=== PATIENT | male | born 1980 | race Caucasian/White ===

== ENCOUNTER 2017-05-30 09:30 | Inpatient (IN) | payer OTHER ==
[2017-05-30 10:52] VITALS: BMI 22.8
--- NOTE | 2017-05-30 13:27 | HP ---
COWS - Scale Resting Pulse: 0= [place] 80 or Below Sweatin=Flushed/Facial Moisture Restless Observation: 1= Difficult to Sit Still Pupil Size: 0= Normal to Room Light Bone or Joint Aches: 2= Severe Diffuse Aches Runny Nose/ Eye Tearin= None GI Upset > 30mins: 2= Nausea/Diarrhea Tremor Observation: 0= None Yawning Observation: 2= >3x During Session Anxiety or Irritability: 2=Irritable/Anxious Goose Flesh Skin: 3=Piloerection COWS Score: 14 CIWA Score - CIWA Score Nausea/Vomitin Muscle Tremors: None Anxiety: 4-Mod. Anxious/Guarded Agitation: 2 Paroxysmal Sweats: 3 Orientation: 2-Disoriented Date<2 days Tacttile Disturbances: 3-Moderate Itch/Numb/Burn Auditory Disturbances: 0-None Visual Disturbances: 0-None Headache: 0-None Present CIWA-Ar Total Score: 19 Admission ROS BHS - HPI Chief Complaint: "I want to get my life together. I am tired of getting high." Pt. is here to Detox from Heroin and Xanax. Allergies/Adverse Reactions: Allergies Allergy/AdvReac Type Severity Reaction Status Date / Time fish AdvReac Hives Uncoded 05/30/17 12:22 History of Present Illness: Pt. is a 36 YO male here to Detox from Heroin and Benzodiazepines (Xanax). This is pt.'s first Detox admission at [facility]. Longest period of non-drug use: approx. 6 months (05/2016 - 11/2016). Exam Limitations: No Limitations - Ebola screening Have you traveled outside of the country in the last 21 days: No Have you had contact with anyone from an Ebola affected area: No Have you been sick,other than usual withdrawal symptoms: No Do you have a fever: No - Review of Systems Constitutional: Chills, Diaphoresis, Fever, Loss of Appetite, Malaise, Night Sweats, Changes in sleep, Unintentional Wgt. Loss (Lost approx. 30 lbs. over last 3 months.) EENT: reports: No Symptoms Reported Respiratory: reports: No Symptoms reported Cardiac: reports: No Symptoms Reported GI: reports: Diarrhea, Nausea, Poor Appetite, Vomiting : reports: No Symptoms Reported Musculoskeletal: reports: Back Pain Integumentary: reports: No Symptoms Reported Neuro: reports: No Symptoms reported Endocrine: reports: No Symptoms Reported Hematology: reports: No Symptoms Reported Psychiatric: reports: Judgement Intact, Mood/Affect Appropiate, Orientated x3, Anxious Other Systems: Reviewed and Negative Patient History - Patient Medical History Hx Anemia: No Hx Asthma: No Hx Chronic Obstructive Pulmonary Disease (COPD): No Hx Cancer: No Hx Cardiac Disorders: No Hx Congestive Heart Failure: No Hx Hypertension: No Hx Hypercholesterolemia: No Hx Pacemaker: No HX Cerebrovascular Accident: No Hx Seizures: No Hx Dementia: No Hx Diabetes: No Hx Gastrointestinal Disorders: No Hx Liver Disease: No Hx Genitourinary Disorders: No Hx Sexually Transmitted Disorders: No Hx Renal Disease (ESRD): No Hx Thyroid Disease: No Hx Human Immunodeficiency Virus (HIV): No (Last Tested: apptrox. 2 years ago: NEGATIVE.) Hx Hepatitis C: Yes (Completed Treatment: January,.) Hx Depression: No Hx Suicide Attempt: No (PATIENT DENIES CURRENTY SI / HI.) Hx Bipolar Disorder: No Hx Schizophrenia: No Other Medical History: DENIES. - Patient Surgical History Past Surgical History: No Hx Neurologic Surgery: No Hx Cataract Extraction: No Hx Cardiac Surgery: No Hx Lung Surgery: No Hx Breast Surgery: No Hx Breast Biopsy: No Hx Abdominal Surgery: No Hx Appendectomy: No Hx Cholecystectomy: No Hx Genitourinary Surgery: No Hx Section: No Hx Orthopedic Surgery: No Anesthesia Reaction: No - PPD History Previous Implant?: Yes Documented Results: Negative w/o proof Implanted On Prior [facility] Admission?: No PPD to be Administered?: Yes - Reproductive History Patient is a Female of Child Bearing Age (11 -55 yrs old): No (PATIENT IS MALE.) - Smoking Cessation Smoking history: Never smoked Have you smoked in the past 12 months: No Aproximately how many cigarettes per day: 0 Cigars Per Day: 0 Hx Chewing Tobacco Use: No Initiated information on smoking cessation: No - Substance & Tx. History Hx Alcohol Use: No Hx Substance Use: Yes Substance Use Type: Cocaine, Heroin, Marijuana, Opiates (Non-Prescription Methadone.), Tranquilizers Hx Substance Use Treatment: Yes ([facility] MMTP Program, Stopped of his own volition in 05/2016.) - Substances Abused Heroin Route: Injection Frequency: 1-3 times last 30 days Amount used: 5 bags Age of first use: 14 Date of Last Use: 05/30/17 Alprazolam (Xanax) Route: Oral Frequency: 1-3 times last 30 days Amount used: 4 mg daily Age of first use: 28 Date of Last Use: 05/29/17 Marijuana/Hashish Route: Smoking Frequency: Daily Amount used: 1 bag (10 dollars) Age of first use: 15 Date of Last Use: 05/29/17 Cocaine Route: Injection Frequency: Daily Amount used: 2 bags dailt (20 dollars) Age of first use: 18 Date of Last Use: 05/29/17 Non-Rx Methadone Route: Oral Frequency: 1-2 times per week Amount used: 20mg-100mg Age of first use: 33 Date of Last Use: 05/26/17 Family Disease History - Family Disease History Family History: Denies Admission Physical Exam [facility] - Vital Signs Vital Signs: Vital Signs - 24 hr 05/30/17 10:45 Temperature 96.8 F L Pulse Rate 70 Respiratory 20 Rate Blood Pressure 135/79 - Physical General Appearance: Yes: No Apparent Distress, Nourished, Appropriately Dressed , Sweating, Anxious HEENTM: Yes: Hearing grossly Normal, Normocephalic, Normal Voice, ELDA, Pharynx Normal Respiratory: Yes: Chest Non-Tender, Lungs Clear, No Respiratory Distress, No Accessory Muscle Use Neck: Yes: No masses,lesions,Nodules, Supple, Trachea in good position Breast: Yes: Breast Exam Deferred Cardiology: Yes: Regular Rhythm, Regular Rate, S1, S2 Abdominal: Yes: Normal Bowel Sounds, Non Tender, Flat, Soft Genitourinary: Yes: Within Normal Limits Back: Yes: Decreased Range of Motion Musculoskeletal: Yes: Gait Steady, Back pain Extremities: Yes: Normal Range of Motion, Non-Tender Neurological: Yes: Fully Oriented, Alert, Normal Mood/Affect, Normal Response Integumentary: Yes: Normal Color, Warm, Track [place] (Noted on bilateral forearms and hands. Redness and swelling noted at affected sites bilaterally.) Lymphatic: Yes: Within Normal Limits - Diagnostic (1) Opioid dependence with withdrawal Current Visit: Yes Status: Acute (2) Sedative, hypnotic or anxiolytic dependence with withdrawal, uncomplicated Current Visit: Yes Status: Acute (3) Cocaine dependence, uncomplicated Current Visit: Yes Status: Acute (4) Cannabis dependence, uncomplicated Current Visit: Yes Status: Acute (5) History of hepatitis C Current Visit: Yes Status: Resolved Cleared for Admission [facility] - Detox or Rehab [facility] Level of Care: Medically Managed Detox Regimen/Protocol: Methadone/Valium [facility] Breath Alcohol Content Breath Alcohol Content: 0 Urine Drug Screen - Results Drug Screen Negative: No Urine Drug Screen Results: THC-Marijuana, MELCHOR-Cocaine, OPI-Opiates, BZO- Benzodiazepines, MTD-Methadone
[2017-05-30] MEDS ORDERED: MAGNESIUM HYDROX 2400MG/30ML ORAL SUSPENSION 30 ML CUP PO PRN (13:58)
[2017-05-30] MEDS ORDERED: ACETAMINOPHEN 325 MG TABLET (FP) PO PRN (13:58)
[2017-05-30] MEDS ORDERED: MAG HYDROX/AL HYDROX/SIMETH 30 ML UNIT-DOSE CUP PO PRN (13:58)
[2017-05-30] MEDS ORDERED: MAGNESIUM CITRATE 300 ML BOTTLE PO PRN (13:58)
[2017-05-30] MEDS ORDERED: guaiFENesin/D-METHORPHAN HB 10 ML UNIT-DOSE CUPS PO PRN (13:58)
[2017-05-30] MEDS ORDERED: hydrOXYzine PAMOATE 50 MG CAPSULE (FP) PO PRN (13:58)
[2017-05-30] MEDS ORDERED: IBUPROFEN 400 MG TABLET (FP) PO PRN (13:58)
[2017-05-30] MEDS ORDERED: P-EPHED 60MG/TRIPROLIDI 2.5MG TABLET PO PRN (13:58)
[2017-05-30] MEDS ORDERED: LOPERAMIDE HCL 2 MG CAPSULE PO PRN (13:58)
[2017-05-30] MEDS ORDERED: MENTHOL/PHENOL 1 EACH UD MM PRN (13:58)
[2017-05-30] MEDS ORDERED: diazePAM 5 MG TABLET PO ONE (14:41)
[2017-05-30] MEDS ORDERED: METHADONE HCL 10 MG TABLET (FOR DETOX USE ONLY) PO ONE ×2 (14:43→23:00)
[2017-05-30 15:39] LABS: MCH 28.2 pg (25.7-33.7); MEAN CELL VOLUME 85.4 fl (80-96); MEAN PLT VOLUME 8.3 fl (7.5-11.1); PLATELET COUNT 191 K/MM3 (134-434); RDW 13.1 % (11.9-15.9); WHITE BLOOD COUNT 3.2 K/mm3 (4.0-10.0)
[2017-05-30 15:51] LABS: ALBUMIN 3.7 g/dl (3.4-5.0); ANION GAP 6 (8-16); CALCIUM 8.6 mg/dL (8.5-10.1); CO2 29 mmol/L (21-32); GLUCOSE,RANDOM 75 mg/dL (74-106); SGOT/AST 26 U/L (15-37)
[2017-05-30 15:54] LABS: ALK PHOS 77 U/L (45-117); BILIRUBIN,TOTAL 0.5 mg/dL (0.2-1.0); CREATININE 1.3 mg/dL (0.7-1.3); SGPT/ALT 25 U/L (12-78); TOT PROT 6.9 g/dl (6.4-8.2)
[2017-05-30] MEDS: diazePAM 5 MG TABLET PO SCH ×2 (15:57→22:46)
--- NOTE | 2017-05-30 16:40 | EKG ---
Test Reason : Blood Pressure : / mmHG Vent. Rate : 054 BPM Atrial Rate : 054 BPM P-R Int : 140 ms QRS Dur : 088 ms QT Int : 440 ms P-R-T Axes : 029 059 045 degrees QTc Int : 417 ms SINUS BRADYCARDIA OTHERWISE NORMAL ECG NO PREVIOUS ECGS AVAILABLE Confirmed by LANDON HARRISON MD ([id number]) on 05/30/2017 4:40:01 PM Referred By: Confirmed By:LANDON HARRISON MD
[2017-05-30 17:04] LABS: HIV 1 & 2 AB NEGATIVE; HIV 1 AGp24 NEGATIVE
[2017-05-30 21:08] LABS: URINE APPEARANCE CLEAR; URINE BILIRUBIN NEGATIVE (NEGATIVE); URINE BLOOD NEGATIVE (NEGATIVE); URINE COLOR YELLOW; URINE GLUCOSE (UA) NEGATIVE (NEGATIVE); URINE KETONE TRACE (NEGATIVE); URINE LEUK ESTERASE NEGATIVE (NEGATIVE); URINE NITRITE NEGATIVE (NEGATIVE); URINE UROBILINOGEN NEGATIVE mg/dL (0.2-1.0)
[2017-05-30 21:10] LABS: URINE PROTEIN 1+ (NEGATIVE)
[2017-05-30 22:12] LABS: CALCIUM OXALATE CRYSTALS RARE /hpf (NONE SEEN); URINE BACTERIA RARE /hpf (NONE SEEN); URINE HYALINE CAST 6 /lpf; URINE MUCUS MANY
[2017-05-30] MEDS: diphenhydrAMINE HCL 50 MG CAPSULE PO PRN (22:46)
[2017-05-30] MEDS: BACITRACIN 0.9 GM PACKET TP SCH (22:46)
[2017-05-30] MEDS: THIAMINE HCL 100 MG TABLET (FP) PO SCH (22:46)
[2017-05-30] MEDS: SULFAMETHOXAZOLE/TRIMETHOPRIM 800MG/160MG D.S. TABLET PO SCH (22:46)
[2017-05-31] MEDS: diazePAM 5 MG TABLET PO SCH ×2 (05:54→22:56)
[2017-05-31] MEDS ORDERED: TRIMETHOBENZAMIDE HCL 200MG/2ML INJ IM PRN (08:52)
[2017-05-31] MEDS ORDERED: METHADONE HCL 10 MG TABLET (FOR DETOX USE ONLY) PO SCH (10:00)
[2017-05-31] MEDS: SULFAMETHOXAZOLE/TRIMETHOPRIM 800MG/160MG D.S. TABLET PO SCH ×2 (10:24→22:55)
[2017-05-31] MEDS: PRENATAL VITAMINS W/ FOLIC ACID TABLET (FP) PO SCH (10:24)
[2017-05-31] MEDS: BACITRACIN 0.9 GM PACKET TP SCH ×2 (10:25→22:55)
[2017-05-31] MEDS: diazePAM 5 MG TABLET PO PRN ×2 (10:27→20:42)
--- NOTE | 2017-05-31 11:20 | PN ---
[facility] CIWA - CIWA Score Nausea/Vomitin Muscle Tremors: 2 Anxiety: 4-Mod. Anxious/Guarded Agitation: 3 Paroxysmal Sweats: 3 Orientation: 0-Oriented Tacttile Disturbances: 2-Mild Itch/Numbness/Burn Auditory Disturbances: 0-None Visual Disturbances: 0-None Headache: 0-None Present CIWA-Ar Total Score: 19 BHS COWS - Scale Resting Pulse: 0= [place] 80 or Below Sweatin=Flushed/Facial Moisture Restless Observation: 1= Difficult to Sit Still Pupil Size: 1= Pupils >than Normal Bone or Joint Aches: 2= Severe Diffuse Aches Runny Nose/ Eye Tearin= Runny Nose/Eyes GI Upset > 30mins: 3= Vomiting/Diarrhea Tremor Observation of Outstretched Hands: 2= Slight Tremor Visible Yawning Observation: 0= None Anxiety or Irritability: 2=Irritable/Anxious Goose Flesh Skin: 0=Smooth Skin COWS Score: 15 S Progress Note (SOAP) Subjective: interrupted sleep, sweats, shakes, nausea, vomiting Objective: 05/31/17 11:18 Vital Signs Temperature 96.8 F L 05/31/17 10:00 Pulse Rate 67 05/31/17 10:00 Respiratory Rate 16 05/31/17 10:00 Blood Pressure 121/91 05/31/17 10:00 O2 Sat by Pulse Oximetry (%) Laboratory Tests 05/30/17 05/30/17 05/30/17 14:15 14:15 14:15 WBC 3.2 L RBC 4.72 Hgb 13.3 Hct 40.3 MCV 85.4 MCH 28.2 MCHC 33.0 RDW 13.1 Plt Count 191 D MPV 8.3 Sickle Cell Screen Sodium 140 Potassium 4.6 Chloride 105 Carbon Dioxide 29 Anion Gap 6 L BUN 16 Creatinine 1.3 Creat Clearance w eGFR > 60 Random Glucose 75 Calcium 8.6 Total Bilirubin 0.5 D AST 26 D ALT 25 D Alkaline Phosphatase 77 Total Protein 6.9 Albumin 3.7 Urine Color Urine Appearance Urine pH Ur Specific [place] Urine Protein Urine Glucose (UA) Urine Ketones Urine Blood Urine Nitrite Urine Bilirubin Urine Urobilinogen Ur Leukocyte Esterase Urine RBC Urine WBC Ur Epithelial Cells Calcium Oxalate Crystal Urine Bacteria Hyaline Casts Urine Mucus HIV 1&2 Antibody Screen Negative HIV P24 Antigen Negative 05/30/17 05/30/17 14:15 15:17 WBC RBC Hgb Hct MCV MCH MCHC RDW Plt Count MPV Sickle Cell Screen Negative Sodium Potassium Chloride Carbon Dioxide Anion Gap BUN Creatinine Creat Clearance w eGFR Random Glucose Calcium Total Bilirubin AST ALT Alkaline Phosphatase Total Protein Albumin Urine Color Yellow Urine Appearance Clear Urine pH 5.0 Ur Specific [place] >= 1.030 H Urine Protein 1+ H Urine Glucose (UA) Negative Urine Ketones Trace H Urine Blood Negative Urine Nitrite Negative Urine Bilirubin Negative Urine Urobilinogen Negative Ur Leukocyte Esterase Negative Urine RBC None Urine WBC None Ur Epithelial Cells Rare Calcium Oxalate Crystal Rare Urine Bacteria Rare Hyaline Casts 6 Urine Mucus Many HIV 1&2 Antibody Screen HIV P24 Antigen pt aox3 vomiting Assessment: 05/31/17 11:18 withdrawal sx's Plan: cont. detox increase fluids zofran prn
[2017-05-31] MEDS: THIAMINE HCL 100 MG TABLET (FP) PO SCH (22:56)
[2017-06-01] MEDS ORDERED: METHADONE HCL 5 MG TABLET (FOR DETOX USE ONLY) PO SCH (10:00)
[2017-06-01] MEDS: CYCLOBENZAPRINE HCL 10 MG TABLET (FP) PO PRN (10:32)
[2017-06-01] MEDS: BACITRACIN 0.9 GM PACKET TP SCH (10:32)
[2017-06-01] MEDS: SULFAMETHOXAZOLE/TRIMETHOPRIM 800MG/160MG D.S. TABLET PO SCH (10:32)
[2017-06-01] MEDS: cloNIDine HCL 0.1 MG TABLET PO SCH (10:32)
[2017-06-01] MEDS: PRENATAL VITAMINS W/ FOLIC ACID TABLET (FP) PO SCH (10:32)
[2017-06-01] MEDS: diazePAM 5 MG TABLET PO SCH ×2 (10:33→21:19)
--- NOTE | 2017-06-01 14:45 | PN ---
[facility] CIWA - CIWA Score Nausea/Vomitin Muscle Tremors: 3 Anxiety: 3 Agitation: 2 Paroxysmal Sweats: 1-Minimal Palms Moist Orientation: 0-Oriented Tacttile Disturbances: 1-Very Mild Itch/Numbness Auditory Disturbances: 1-Very Mild Visual Disturbances: 1-Very Mild Sensitivity Headache: 2-Mild CIWA-Ar Total Score: 17 BHS COWS - Scale Resting Pulse: 0= [place] 80 or Below Sweatin= Chills/Flushing Restless Observation: 3= Extraneous Movement Pupil Size: 1= Pupils >than Normal Bone or Joint Aches: 2= Severe Diffuse Aches Runny Nose/ Eye Tearin= Runny Nose/Eyes GI Upset > 30mins: 2= Nausea/Diarrhea Tremor Observation of Outstretched Hands: 2= Slight Tremor Visible Yawning Observation: 2= >3x During Session Anxiety or Irritability: 2=Irritable/Anxious Goose Flesh Skin: 0=Smooth Skin COWS Score: 17 S Progress Note (SOAP) Subjective: alert,irritable,anxious,interrupted sleep,tremor,pain in the body and back, interrupted sleep Objective: 06/01/17 14:43 Vital Signs Temperature 99.0 F 06/01/17 14:23 Pulse Rate 64 06/01/17 14:23 Respiratory Rate 18 06/01/17 14:23 Blood Pressure 130/67 06/01/17 14:23 O2 Sat by Pulse Oximetry (%) ekg sinus bradycardia 54/min Laboratory Last Values WBC 3.2 K/mm3 (4.0-10.0) L 05/30/17 14:15 RBC 4.72 M/mm3 (4.00-5.60) 05/30/17 14:15 Hgb 13.3 GM/dL (11.7-16.9) 05/30/17 14:15 Hct 40.3 % (35.4-49) 05/30/17 14:15 MCV 85.4 fl (80-96) 05/30/17 14:15 MCH 28.2 pg (25.7-33.7) 05/30/17 14:15 MCHC 33.0 g/dl (32.0-35.9) 05/30/17 14:15 RDW 13.1 % (11.9-15.9) 05/30/17 14:15 Plt Count 191 K/MM3 (134-434) D 05/30/17 14:15 MPV 8.3 fl (7.5-11.1) 05/30/17 14:15 Sickle Cell Screen Negative (NEGATIVE) 05/30/17 14:15 Sodium 140 mmol/L (136-145) 05/30/17 14:15 Potassium 4.6 mmol/L (3.5-5.1) 05/30/17 14:15 Chloride 105 mmol/L (98-107) 05/30/17 14:15 Carbon Dioxide 29 mmol/L (21-32) 05/30/17 14:15 Anion Gap 6 (8-16) L 05/30/17 14:15 BUN 16 mg/dL (7-18) 05/30/17 14:15 Creatinine 1.3 mg/dL (0.7-1.3) 05/30/17 14:15 Creat Clearance w eGFR > 60 (>60) 05/30/17 14:15 Random Glucose 75 mg/dL (74-106) 05/30/17 14:15 Calcium 8.6 mg/dL (8.5-10.1) 05/30/17 14:15 Total Bilirubin 0.5 mg/dL (0.2-1.0) D 05/30/17 14:15 AST 26 U/L (15-37) D 05/30/17 14:15 ALT 25 U/L (12-78) D 05/30/17 14:15 Alkaline Phosphatase 77 U/L (45-117) 05/30/17 14:15 Total Protein 6.9 g/dl (6.4-8.2) 05/30/17 14:15 Albumin 3.7 g/dl (3.4-5.0) 05/30/17 14:15 Urine Color Yellow 05/30/17 15:17 Urine Appearance Clear 05/30/17 15:17 Urine pH 5.0 (5.0-8.0) 05/30/17 15:17 Ur Specific [place] >= 1.030 (1.005-1.025) H 05/30/17 15:17 Urine Protein 1+ (NEGATIVE) H 05/30/17 15:17 Urine Glucose (UA) Negative (NEGATIVE) 05/30/17 15:17 Urine Ketones Trace (NEGATIVE) H 05/30/17 15:17 Urine Blood Negative (NEGATIVE) 05/30/17 15:17 Urine Nitrite Negative (NEGATIVE) 05/30/17 15:17 Urine Bilirubin Negative (NEGATIVE) 05/30/17 15:17 Urine Urobilinogen Negative mg/dL (0.2-1.0) 05/30/17 15:17 Ur Leukocyte Esterase Negative (NEGATIVE) 05/30/17 15:17 Urine RBC None /hpf (0-3) 05/30/17 15:17 Urine WBC None /hpf (3-5) 05/30/17 15:17 Ur Epithelial Cells Rare /hpf (FEW) 05/30/17 15:17 Calcium Oxalate Crystal Rare /hpf (NONE SEEN) 05/30/17 15:17 Urine Bacteria Rare /hpf (NONE SEEN) 05/30/17 15:17 Hyaline Casts 6 /lpf 05/30/17 15:17 Urine Mucus Many 05/30/17 15:17 RPR Titer Nonreactive (NONREACTIVE) 05/30/17 14:15 HIV 1&2 Antibody Screen Negative 05/30/17 14:15 HIV P24 Antigen Negative 05/30/17 14:15 Assessment: 06/01/17 14:44 withdrawal symptom Plan: continue detox
[2017-06-01] MEDS: diazePAM 5 MG TABLET PO PRN (14:53)
[2017-06-02] MEDS: BACITRACIN 0.9 GM PACKET TP SCH ×3 (00:01→22:47)
[2017-06-02] MEDS: THIAMINE HCL 100 MG TABLET (FP) PO SCH ×2 (00:02→22:48)
[2017-06-02] MEDS: cloNIDine HCL 0.1 MG TABLET PO SCH ×3 (00:02→22:48)
[2017-06-02] MEDS: SULFAMETHOXAZOLE/TRIMETHOPRIM 800MG/160MG D.S. TABLET PO SCH ×3 (00:02→22:48)
[2017-06-02] MEDS: diazePAM 5 MG TABLET PO SCH ×3 (00:02→22:48)
[2017-06-02] MEDS: CYCLOBENZAPRINE HCL 10 MG TABLET (FP) PO PRN (07:14)
--- NOTE | 2017-06-02 09:14 | PN ---
S Progress Note (SOAP) Subjective: ALERT,IRRITABLE,ANXIOUS,INTERRUPTED SLEEP,PAIN IN THE BODY AND BACK Objective: 06/02/17 09:12 Vital Signs Temperature 98.0 F 06/02/17 06:52 Pulse Rate 55 L 06/02/17 06:52 Respiratory Rate 16 06/02/17 06:52 Blood Pressure 118/77 06/02/17 06:52 O2 Sat by Pulse Oximetry (%) Assessment: 06/02/17 09:13 WITHDRAWAL SYMPTOM Plan: CONTINUE DETOX
[2017-06-02] MEDS ORDERED: METHADONE HCL 10 MG TABLET (FOR DETOX USE ONLY) PO ONE (10:00)
[2017-06-02] MEDS: PRENATAL VITAMINS W/ FOLIC ACID TABLET (FP) PO SCH (10:20)
[2017-06-02] MEDS: diphenhydrAMINE HCL 50 MG CAPSULE PO PRN (22:48)
[2017-06-03] MEDS ORDERED: METHADONE HCL 5 MG TABLET (FOR DETOX USE ONLY) PO ONE (06:00)
[2017-06-03 06:19] VITALS: BP 120/58; PULSE 55; TEMP 98.1
--- NOTE | 2017-06-03 08:48 | DS ---
[facility] Detox Discharge Summary Admission Date: 05/30/17 Discharge Date: 06/03/17 - History Present History: Cannabis Dependence, Opioid Dependence, Sedative Dependence - Physical Exam Results Vital Signs: Vital Signs Temperature 98.1 F 06/03/17 06:17 Pulse Rate 55 L 06/03/17 06:17 Respiratory Rate 16 06/03/17 06:17 Blood Pressure 120/58 06/03/17 06:17 O2 Sat by Pulse Oximetry (%) - Treatment Hospital Course: Detox Protocol Followed, Detoxed Safely, Responded well, Discharged Condition Good, Rehab Referral Accepted - Medication Discharge Medications: Ambulatory Orders NK [No Known Home Medication] 05/30/17 - Diagnosis (1) Abscess of arm Current Visit: Yes Status: Acute (2) Abscess, hand Current Visit: Yes Status: Acute (3) Cannabis dependence, uncomplicated Current Visit: Yes Status: Chronic (4) Cocaine dependence, uncomplicated Current Visit: Yes Status: Chronic (5) Opioid dependence with withdrawal Current Visit: Yes Status: Chronic (6) Sedative, hypnotic or anxiolytic dependence with withdrawal, uncomplicated Current Visit: Yes Status: Chronic (7) Hep C w/o coma, chronic Current Visit: No Status: Chronic - AMA Did Patient Leave Against Medical Advice: No
--- NOTE | 2017-06-03 09:38 | CONSULT ---
[facility] Psychiatric Consult - Data Date of interview: 06/03/17 Admission source: [facility] Identifying data: This is 36 years old male with no psychiatric hospitalization history iontoxicated with: Heroin Methadonme, Cannabis, Cocaine, Xanax Substance Abuse History: - Smoking Cessation. Smoking history: Never smoked. Have you smoked in the past 12 months: No. Aproximately how many cigarettes per day: 0. Cigars Per Day: 0. Hx Chewing Tobacco Use: No. Initiated information on smoking cessation: No. - Substance & Tx. History. Hx Alcohol Use: No. Hx Substance Use: Yes. Substance Use Type: Cocaine, Heroin, Marijuana , Opiates (Non-Prescription Methadone.), Tranquilizers. Hx Substance Use Treatment: Yes ([facility] MMTP Program, Stopped of his own volition in 05/2016.). - Substances Abused. Heroin. Route: Injection. Frequency: 1-3 times last 30 days. Amount used: 5 bags. Age of first use: 14. Date of Last Use: 05/30/17. Alprazolam (Xanax). Route: Oral. Frequency: 1-3 times last 30 days. Amount used: 4 mg daily. Age of first use: 28. Date of Last Use: 05/29/17. * * Marijuana/Hashish. Route: Smoking. Frequency: Daily. Amount used: 1 bag ( 10 dollars). Age of first use: 15. Date of Last Use: 05/29/17. Cocaine. Route: Injection. Frequency: Daily. Amount used: 2 bags dailt (20 dollars). Age of first use: 18. Date of Last Use: 05/29/17. Non-Rx Methadone. Route : Oral. Frequency: 1-2 times per week. Amount used: 20mg-100mg. Age of first use: 33. Date of Last Use: 05/26/17 Medical History: Hisotry of Abscesses of arm, hand, Hep C+ Psychiatric History: Patient denies past psychiatric history Physical/Sexual Abuse/Trauma History: Denies Additional Comment: Observation. Detox Unit Care Protocol Mental Status Exam - Mental Status Exam Alert and Oriented to: Person Cognitive Function: Fair Patient Appearance: Well Groomed Mood: Anxious Affect: Mood Congruent Patient Behavior: Cooperative Speech Pattern: Excessive Voice Loudness: Mildly Loud Thought Process: Goal Oriented Thought Disorder: Being Controlled Hallucinations: Denies Suicidal Ideation: Denies Homicidal Ideation: Denies Insight/Judgement: Fair Sleep: Difficulty falling asleep Appetite: Weight loss Muscle strength/Tone: Normal Gait/Station: Normal Additional Comments: Observation. Detox Unit Care Protocol Psychiatric Findings - Problem List ([place] 1, 2,3) (1) Abscess of arm Current Visit: Yes Status: Acute Comment: Bilateral. (2) Abscess, hand Current Visit: Yes Status: Acute Comment: Bilateral. (3) Cannabis dependence, uncomplicated Current Visit: Yes Status: Chronic (4) Cocaine dependence, uncomplicated Current Visit: Yes Status: Chronic (5) Opioid dependence with withdrawal Current Visit: Yes Status: Chronic (6) Sedative, hypnotic or anxiolytic dependence with withdrawal, uncomplicated Current Visit: Yes Status: Chronic (7) Drug-induced mood disorder Current Visit: Yes Status: Acute - Initial Treatment Plan Initial Treatment Plan: Observation. Detox Unit Care Protocol
[2017-06-03] MEDS ORDERED: METHADONE HCL 10 MG TABLET (FOR DETOX USE ONLY) PO SCH (10:00)
[2017-06-03] MEDS ORDERED: diazePAM 5 MG TABLET PO SCH (10:00)
[2017-06-04] MEDS ORDERED: METHADONE HCL 5 MG TABLET (FOR DETOX USE ONLY) PO SCH (06:00)
== END 2017-06-03 08:58 | disposition home or self-care (01) | DRG 773 ==
LOC: YASAS 09:30 → Y6N 13:48
PROVIDERS: ADMIT Internal Medicine Addiction Medicine; ATTEND Internal Medicine Addiction Medicine
PROC: HZ2ZZZZ Detoxification Services for Substance Abuse Treatment (ICD-10-PCS; principal; 2017-05-30)
DX: F11.23 Opioid dependence with withdrawal (principal); F13.230 Sedative, hypnotic or anxiolytic dependence with withdrawal, uncomplicated; F14.20 Cocaine dependence, uncomplicated; F12.20 Cannabis dependence, uncomplicated; F19.24 Other psychoactive substance dependence with psychoactive substance-induced mood disorder; B18.2 Chronic viral hepatitis C; L02.414 Cutaneous abscess of left upper limb; L02.413 Cutaneous abscess of right upper limb; L02.512 Cutaneous abscess of left hand; L02.511 Cutaneous abscess of right hand
CPT/HCPCS: 36415; 80053; 81003; 81015; 85027; 85660; 86593; 87389; 93005; 93010

== ENCOUNTER 2018-02-21 09:28 | Inpatient (IN) | payer OTHER ==
[2018-02-21 11:45] VITALS: BMI 23.5
--- NOTE | 2018-02-21 13:10 | HP ---
COWS - Scale Resting Pulse: 0= [place] 80 or Below Sweatin=Flushed/Facial Moisture Restless Observation: 3= Extraneous Movement Pupil Size: 2= Moderately Dilated Bone or Joint Aches: 2= Severe Diffuse Aches Runny Nose/ Eye Tearin= Runny Nose/Eyes GI Upset > 30mins: 3= Vomiting/Diarrhea Tremor Observation: 2= Slight Tremor Visible Yawning Observation: 2= >3x During Session Anxiety or Irritability: 2=Irritable/Anxious Goose Flesh Skin: 0=Smooth Skin COWS Score: 20 Admission ROS S - HPI Chief Complaint: I NEED HELP TO STOP USING HEROIN,COCAINE,MARIJUANA PCP Allergies/Adverse Reactions: Allergies Allergy/AdvReac Type Severity Reaction Status Date / Time No Known Drug Allergies Allergy Unknown Verified 02/21/18 14:11 NKDA Allergy Uncoded 02/21/18 14:11 fish AdvReac Hives Uncoded 02/21/18 12:08 History of Present Illness: THIS 37 YEARS OLD MALE WITH HEROIN,COCAINE,MARIJUANA AND PCP DEPENDENCE,SEEKING DETOX,WITHDRAWAL SYMPTOM,LAST DETOX HYPERTENSION NO MEDICATION HEPATITIS C ANXIETY,INSOMNIA LONGEST PERIOD OF SOBRIETY 3 YEARS WEIGHT LOSS NICOTINE DEPENDENCE Exam Limitations: No Limitations - Ebola screening Have you traveled outside of the country in the last 21 days: No (N) Have you had contact with anyone from an Ebola affected area: No Have you been sick,other than usual withdrawal symptoms: No Do you have a fever: No - Review of Systems Constitutional: Chills, Diaphoresis, Loss of Appetite, Malaise, Night Sweats, Changes in sleep, Weakness, Unintentional Wgt. Loss EENT: reports: Tearing, Nose Congestion Respiratory: reports: No Symptoms reported Cardiac: reports: No Symptoms Reported GI: reports: Nausea, Vomiting, Abdominal cramping : reports: No Symptoms Reported Musculoskeletal: reports: Back Pain, Joint Pain, Muscle Pain Integumentary: reports: Dryness Neuro: reports: Headache, Tremors Endocrine: reports: No Symptoms Reported Hematology: reports: No Symptoms Reported Psychiatric: reports: No Sypmtoms Reported, Judgement Intact, Mood/Affect Appropiate, Orientated x3 (INSOMNIA,ANXIETY,DEPRESSION) Patient History - Patient Medical History Hx Anemia: No Hx Asthma: No Hx Chronic Obstructive Pulmonary Disease (COPD): No Hx Cancer: No Hx Cardiac Disorders: No Hx Congestive Heart Failure: No Hx Hypertension: No Hx Hypercholesterolemia: No Hx Pacemaker: No HX Cerebrovascular Accident: No Hx Seizures: No Hx Dementia: No Hx Diabetes: No Hx Gastrointestinal Disorders: No Hx Liver Disease: Yes (Hep C) Hx Genitourinary Disorders: No Hx Sexually Transmitted Disorders: No Hx Renal Disease (ESRD): No Hx Thyroid Disease: No Hx Human Immunodeficiency Virus (HIV): No (01/26 AT [facility] NEGATIVE) Hx Hepatitis C: Yes ([place] 1 a, treatment-naive) Hx Depression: No Hx Suicide Attempt: No (PATIENT DENIES CURRENTY SI / HI.) Hx Bipolar Disorder: No Hx Schizophrenia: No Other Medical History: NO SUICIDAL,NO SUICIDAL - Patient Surgical History Past Surgical History: No Hx Neurologic Surgery: No Hx Cataract Extraction: No Hx Cardiac Surgery: No Hx Lung Surgery: No Hx Breast Surgery: No Hx Breast Biopsy: No Hx Abdominal Surgery: No Hx Appendectomy: No Hx Cholecystectomy: No Hx Genitourinary Surgery: No Hx Section: No Hx Orthopedic Surgery: No Anesthesia Reaction: No - PPD History Previous Implant?: Yes Documented Results: Negative w/proof Implanted On Prior [facility] Admission?: Yes Date: 06/01/17 Results: 0 MM PPD to be Administered?: No - Smoking Cessation Smoking history: Current every day smoker Have you smoked in the past 12 months: No Aproximately how many cigarettes per day: 20 Cigars Per Day: 0 Hx Chewing Tobacco Use: No Initiated information on smoking cessation: Yes 'Breaking Loose' booklet given: 02/21/18 - Substance & Tx. History Hx Alcohol Use: No Hx Substance Use: Yes Substance Use Type: Cocaine, Heroin Hx Substance Use Treatment: Yes ([facility] 05/30/17 TO 06/03/17) - Substances Abused Heroin Route: Injection Frequency: Daily Amount used: 15BAGS Age of first use: 15 Date of Last Use: 02/21/18 Cocaine Route: Smoking Frequency: Daily Amount used: 2 GRAMS Age of first use: 23 Date of Last Use: 02/21/18 Marijuana/Hashish Route: Smoking Frequency: 1-2 times per week Amount used: 10$ Age of first use: 14 Date of Last Use: 02/20/18 PCP Route: Smoking Frequency: 1-2 times per week Amount used: 20$ Age of first use: 37 Date of Last Use: 02/19/18 Family Disease History - Family Disease History Family Disease History: Diabetes: Grandparent (maternal GM), Sister Admission Physical Exam [facility] - Vital Signs Vital Signs: Vital Signs - 24 hr 02/21/18 11:43 Temperature 96.4 F L Pulse Rate 69 Respiratory 20 Rate Blood Pressure 161/96 - Physical General Appearance: Yes: Moderate Distress, Irritable, Sweating, Anxious HEENTM: Yes: Normal ENT Inspection, ELDA, Pharynx Normal, Other (IV SITE LEFT NECK) Respiratory: Yes: Within Normal Limits, Lungs Clear, Normal Breath Sounds Neck: Yes: Within Normal Limits, Supple, Trachea in good position Breast: Yes: Within Normal Limits Cardiology: Yes: Within Normal Limits, Regular Rhythm, Regular Rate, S1, S2 Abdominal: Yes: Within Normal Limits, Normal Bowel Sounds, Non Tender, Flat, Soft Genitourinary: Yes: Within Normal Limits Back: Yes: Normal Inspection, Muscle Spasm Musculoskeletal: Yes: full range of Motion, Back pain, Muscle Pain Extremities: Yes: Within Normal Limits, Normal Range of Motion, Tremors Neurological: Yes: linseed oil order filler II-XII NML intact, Fully Oriented, Alert, Motor Strength 5/5 Integumentary: Yes: Dry, Track [place] (BOTH NECKS) Lymphatic: Yes: Within Normal Limits - Diagnostic (1) Opioid dependence with withdrawal Current Visit: Yes Status: Acute (2) Cannabis dependence, uncomplicated Current Visit: Yes Status: Acute (3) Cocaine dependence, uncomplicated Current Visit: Yes Status: Acute (4) Hepatitis C Current Visit: Yes Status: Acute Qualifiers: Viral hepatitis chronicity: chronic Hepatic coma status: without hepatic coma Qualified Code(s): B18.2 - Chronic viral hepatitis C (5) PCP abuse Current Visit: Yes Status: Acute (6) IV drug user Current Visit: Yes Status: Acute (7) Dehydration Current Visit: Yes Status: Acute (8) Insomnia secondary to depression with anxiety Current Visit: Yes Status: Acute (9) Nicotine dependence Current Visit: Yes Status: Acute Qualifiers: Nicotine product type: cigarettes Substance use status: uncomplicated Qualified Code(s): F17.210 - Nicotine dependence, cigarettes, uncomplicated Cleared for Admission [facility] - Detox or Rehab [facility] Level of Care: Medically Managed Detox Regimen/Protocol: Methadone S Breath Alcohol Content Breath Alcohol Content: 0 Urine Drug Screen - Results Drug Screen Negative: No Urine Drug Screen Results: THC-Marijuana, MELCHOR-Cocaine, OPI-Opiates, PCP- Phencyclidine
[2018-02-21] MEDS ORDERED: P-EPHED 60MG/TRIPROLIDI 2.5MG TABLET PO PRN (13:36)
[2018-02-21] MEDS ORDERED: LOPERAMIDE HCL 2 MG CAPSULE PO PRN (13:36)
[2018-02-21] MEDS ORDERED: hydrOXYzine PAMOATE 50 MG CAPSULE (FP) PO PRN (13:36)
[2018-02-21] MEDS ORDERED: IBUPROFEN 400 MG TABLET (FP) PO PRN (13:36)
[2018-02-21] MEDS ORDERED: MAGNESIUM CITRATE 300 ML BOTTLE PO PRN (13:36)
[2018-02-21] MEDS ORDERED: ACETAMINOPHEN 325 MG TABLET (FP) PO PRN (13:36)
[2018-02-21] MEDS ORDERED: guaiFENesin/D-METHORPHAN HB 10 ML UNIT-DOSE CUPS PO PRN (13:36)
[2018-02-21] MEDS ORDERED: MAGNESIUM HYDROX 2400MG/30ML ORAL SUSPENSION 30 ML CUP PO PRN (13:36)
[2018-02-21] MEDS ORDERED: MAG HYDROX/AL HYDROX/SIMETH 30 ML UNIT-DOSE CUP PO PRN (13:36)
[2018-02-21] MEDS ORDERED: MENTHOL/PHENOL 1 EACH UD MM PRN (13:36)
[2018-02-21] MEDS ORDERED: CYCLOBENZAPRINE HCL 10 MG TABLET (FP) PO PRN (13:41)
[2018-02-21] MEDS ORDERED: METHADONE HCL 10 MG TABLET (FOR DETOX USE ONLY) PO ONE ×2 (14:15→23:00)
[2018-02-21] MEDS: cloNIDine HCL 0.1 MG TABLET PO SCH ×2 (16:04→22:27)
[2018-02-21] MEDS: diazePAM 5 MG TABLET PO PRN ×2 (16:05→22:27)
[2018-02-21] MEDS: NICOTINE 21 MG/24 HOURS TOPICAL PATCH TD SCH (16:07)
--- NOTE | 2018-02-21 16:34 | CONSULT ---
[facility] Psychiatric Consult - Data Date of interview: 02/21/18 Admission source: [facility] Identifying data: Readmission to [facility] for this 37 y/o male seeking detox treatment on for cannabis,alcohol,heroin,heroin and phencyclidine dependence.Patient is ,a father of four,domiciled, unemployed (just released from skilled nursing) and supported by relatives. Substance Abuse History: Confirmed by patient in this interview.Details in current [facility] report : Smoking history: Current every day smoker. Have you smoked in the past 12 months: No. Aproximately how many cigarettes per day: 20. Cigars Per Day: 0. Hx Chewing Tobacco Use: No. Initiated information on smoking cessation: Yes. 'Breaking Loose' booklet given: 02/21/18. - Substance & Tx. History. Hx Alcohol Use: No. Hx Substance Use: Yes. Substance Use Type : Cocaine, Heroin. Hx Substance Use Treatment: Yes ([facility] 05/30/17 TO 06/03/17) . - Substances Abused. Heroin. Route: Injection. Frequency: Daily. Amount used: 15BAGS. Age of first use: 15. Date of Last Use: 02/21/18. Cocaine. Route: Smoking. Frequency: Daily. Amount used: 2 GRAMS. Age of first use: 23. Date of Last Use: 02/21/18. Marijuana/Hashish. Route: Smoking. Frequency: 1-2 times per week. Amount used: 10$. Age of first use: 14. Date of Last Use: 02/20/18. PCP. Route: Smoking. Frequency: 1-2 times per week. Amount used: 20$. Age of first use: 37. Date of Last Use: 09/28 Medical History: Hepatitis C. Psychiatric History: Patient admits to a history of one psychiatric hospitalization ([facility]) in 2002.Diagnosed with Bipolar Disorder ( self-report).Past trials of various psychotropic medications (paxil,trazodone, seroquel,prozac,gabapentin).Mr Anton reports that he has stopped taking medications " for more than a year." No OPD care.Patient endorses one suicide attempt via jumping in the path of oncoming traffic (2002). Physical/Sexual Abuse/Trauma History: Patient denies. Additional Comment: Urine Drug Screen Results: THC-Marijuana, MELCHOR-Cocaine, OPI- Opiates, PCP-Phencyclidine.Noted. Mental Status Exam - Mental Status Exam Alert and Oriented to: Time, Place, Person Cognitive Function: Good Patient Appearance: Well Groomed (tall stature,tattoos on upper extremities) Mood: Withdrawn, Anxious Affect: Appropriate, Normal Range Patient Behavior: Fatigued, Appropriate, Cooperative Speech Pattern: Clear Voice Loudness: Normal Thought Process: Goal Oriented Hallucinations: Denies Suicidal Ideation: Denies Homicidal Ideation: Denies Insight/Judgement: Poor Sleep: Poorly, Difficulty falling asleep (wants seroquel) Muscle strength/Tone: Normal Gait/Station: Normal Psychiatric Findings - Problem List ([place] 1, 2,3) (1) Opioid dependence with withdrawal Current Visit: Yes Status: Acute (2) Cannabis dependence, uncomplicated Current Visit: Yes Status: Acute (3) Cocaine dependence, uncomplicated Current Visit: Yes Status: Acute (4) PCP abuse Current Visit: Yes Status: Acute (5) Nicotine dependence Current Visit: Yes Status: Acute (6) Drug-induced mood disorder Current Visit: Yes Status: Acute (7) Insomnia Current Visit: Yes Status: Acute - Initial Treatment Plan Initial Treatment Plan: Psychoeducation.Sleep hygiene.Detoxification in progress.Seroquel 100 mg po hs.Side effects/benefits discussed with patient.Made aware of risk for metabolic syndrome,oversedation/falls,abnormal involuntary movements and cardiovascular adverse events.Mr Anton agrees with this careplan.Observation.
[2018-02-21 21:38] LABS: URINE APPEARANCE CLEAR; URINE BILIRUBIN NEGATIVE (<2.0 mg/dL); URINE BLOOD NEGATIVE (NEGATIVE); URINE COLOR YELLOW; URINE GLUCOSE (UA) NEGATIVE (NEGATIVE); URINE KETONE NEGATIVE (NEGATIVE); URINE LEUK ESTERASE NEGATIVE (NEGATIVE); URINE NITRITE NEGATIVE (NEGATIVE); URINE PROTEIN NEGATIVE (NEGATIVE); URINE UROBILINOGEN NEGATIVE mg/dL (0.2-1.0)
[2018-02-21] MEDS ORDERED: MELATONIN 5 MG TABLETS PO PRN (22:00)
[2018-02-21] MEDS: THIAMINE HCL 100 MG TABLET (FP) PO SCH (22:27)
[2018-02-21] MEDS: QUEtiapine FUMARATE 100 MG TABLET (FP) PO SCH (22:28)
[2018-02-22] MEDS ORDERED: METHADONE HCL 10 MG TABLET (FOR DETOX USE ONLY) PO ONE (10:00)
[2018-02-22] MEDS: PRENATAL VITAMINS W/ FOLIC ACID TABLET (FP) PO SCH (10:32)
[2018-02-22] MEDS: diazePAM 5 MG TABLET PO PRN ×3 (10:32→22:27)
[2018-02-22] MEDS: cloNIDine HCL 0.1 MG TABLET PO SCH ×2 (10:32→22:27)
[2018-02-22 10:33] LABS: HEMATOCRIT 36.4 % (35.4-49); HEMOGLOBIN 12.2 GM/dL (11.7-16.9); MCH 28.8 pg (25.7-33.7); MCHC 33.4 g/dl (32.0-35.9); MEAN CELL VOLUME 86.1 fl (80-96); MEAN PLT VOLUME 8.3 fl (7.5-11.1); PLATELET COUNT 345 K/MM3 (134-434); RBC 4.23 M/mm3 (4.00-5.60); RDW 13.8 % (11.9-15.9); WHITE BLOOD COUNT 4.5 K/mm3 (4.0-10.0)
[2018-02-22] MEDS: NICOTINE 21 MG/24 HOURS TOPICAL PATCH TD SCH (10:33)
[2018-02-22 10:44] LABS: CHLORIDE 104 mmol/L (98-107); POTASSIUM 4.5 mmol/L (3.5-5.1); SODIUM 141 mmol/L (136-145)
[2018-02-22 10:52] LABS: ALBUMIN 3.8 g/dl (3.4-5.0); ALK PHOS 69 U/L (45-117); ANION GAP 8 (8-16); BILIRUBIN,TOTAL 0.4 mg/dL (0.2-1.0); BLOOD UREA NITROGEN 14 mg/dL (7-18); CO2 29 mmol/L (21-32); CREATININE 1.1 mg/dL (0.7-1.3); GLUCOSE,RANDOM 118 mg/dL (74-106); SGOT/AST 25 U/L (15-37); SGPT/ALT 18 U/L (12-78); TOT PROT 7.2 g/dl (6.4-8.2)
[2018-02-22] MEDS: PANTOPRAZOLE 20 MG TABLET (FP) PO SCH (13:53)
--- NOTE | 2018-02-22 16:12 | PN ---
BHS COWS - Scale Resting Pulse: 0= ID 80 or Below Sweatin= Chills/Flushing Restless Observation: 1= Difficult to Sit Still Pupil Size: 0= Normal to Room Light Bone or Joint Aches: 2= Severe Diffuse Aches Runny Nose/ Eye Tearin= Runny Nose/Eyes GI Upset > 30mins: 1= Stomach Cramp Tremor Observation of Outstretched Hands: 0= None Yawning Observation: 1= 1-2x During Session Anxiety or Irritability: 2=Irritable/Anxious Goose Flesh Skin: 3=Piloerection COWS Score: 13 BHS Progress Note (SOAP) Subjective: Body Aches, Interrupted Sleep, Sweating, Stomach Cramping. Objective: PATIENT A & O X 3, OBSERVED AMBULATING ON UNIT. NO ACUTE DISTRESS. 02/22/18 16:10 Vital Signs Temperature 97.6 F 02/22/18 11:21 Pulse Rate 68 02/22/18 11:21 Respiratory Rate 18 02/22/18 11:21 Blood Pressure 122/74 02/22/18 11:21 O2 Sat by Pulse Oximetry (%) Laboratory Tests 02/21/18 02/22/18 02/22/18 18:40 06:20 06:20 WBC 4.5 RBC 4.23 Hgb 12.2 D Hct 36.4 D MCV 86.1 MCH 28.8 MCHC 33.4 RDW 13.8 Plt Count 345 MPV 8.3 Sodium 141 Potassium 4.5 Chloride 104 Carbon Dioxide 29 Anion Gap 8 BUN 14 Creatinine 1.1 Creat Clearance w eGFR > 60 Random Glucose 118 H D Calcium 9.0 Total Bilirubin 0.4 AST 25 ALT 18 D Alkaline Phosphatase 69 Total Protein 7.2 Albumin 3.8 Urine Color Yellow Urine Appearance Clear Urine pH 5.0 Ur Specific [place] 1.028 Urine Protein Negative Urine Glucose (UA) Negative Urine Ketones Negative Urine Blood Negative Urine Nitrite Negative Urine Bilirubin Negative Urine Urobilinogen Negative Ur Leukocyte Esterase Negative RPR Titer 02/22/18 06:20 WBC RBC Hgb Hct MCV MCH MCHC RDW Plt Count MPV Sodium Potassium Chloride Carbon Dioxide Anion Gap BUN Creatinine Creat Clearance w eGFR Random Glucose Calcium Total Bilirubin AST ALT Alkaline Phosphatase Total Protein Albumin Urine Color Urine Appearance Urine pH Ur Specific [place] Urine Protein Urine Glucose (UA) Urine Ketones Urine Blood Urine Nitrite Urine Bilirubin Urine Urobilinogen Ur Leukocyte Esterase RPR Titer Nonreactive LABS NOTED. 02/22/18 16:11 Assessment: 02/22/18 16:11 WITHDRAWAL SYMPTOMS. Plan: CONTINUE DETOX. INCREASE DAILY PO FLUID INTAKE.
[2018-02-22] MEDS: QUEtiapine FUMARATE 100 MG TABLET (FP) PO SCH (22:27)
[2018-02-22] MEDS: THIAMINE HCL 100 MG TABLET (FP) PO SCH (22:27)
[2018-02-23] MEDS ORDERED: METHADONE HCL 5 MG TABLET (FOR DETOX USE ONLY) PO ONE (10:00)
[2018-02-23] MEDS: PANTOPRAZOLE 20 MG TABLET (FP) PO SCH (10:26)
[2018-02-23] MEDS: PRENATAL VITAMINS W/ FOLIC ACID TABLET (FP) PO SCH (10:26)
[2018-02-23] MEDS: NICOTINE 21 MG/24 HOURS TOPICAL PATCH TD SCH (10:26)
[2018-02-23] MEDS: cloNIDine HCL 0.1 MG TABLET PO SCH ×2 (10:26→22:43)
[2018-02-23] MEDS: diazePAM 5 MG TABLET PO PRN ×3 (10:27→22:43)
--- NOTE | 2018-02-23 11:42 | PN ---
BHS COWS - Scale Resting Pulse: 0= [place] 80 or Below Sweatin= Chills/Flushing Restless Observation: 1= Difficult to Sit Still Pupil Size: 0= Normal to Room Light Bone or Joint Aches: 2= Severe Diffuse Aches Runny Nose/ Eye Tearin= Nasal Congestion GI Upset > 30mins: 1= Stomach Cramp Tremor Observation of Outstretched Hands: 2= Slight Tremor Visible Yawning Observation: 2= >3x During Session Anxiety or Irritability: 2=Irritable/Anxious Goose Flesh Skin: 0=Smooth Skin COWS Score: 12 BHS Progress Note (SOAP) Subjective: irritable agitation sweats interrupted sleep Objective: 02/23/18 11:41 Vital Signs Temperature 95.7 F L 02/23/18 11:11 Pulse Rate 71 02/23/18 11:11 Respiratory Rate 18 02/23/18 11:11 Blood Pressure 114/69 02/23/18 11:11 O2 Sat by Pulse Oximetry (%) Laboratory Tests 02/21/18 02/22/18 02/22/18 18:40 06:20 06:20 WBC 4.5 RBC 4.23 Hgb 12.2 D Hct 36.4 D MCV 86.1 MCH 28.8 MCHC 33.4 RDW 13.8 Plt Count 345 MPV 8.3 Sodium 141 Potassium 4.5 Chloride 104 Carbon Dioxide 29 Anion Gap 8 BUN 14 Creatinine 1.1 Creat Clearance w eGFR > 60 Random Glucose 118 H D Calcium 9.0 Total Bilirubin 0.4 AST 25 ALT 18 D Alkaline Phosphatase 69 Total Protein 7.2 Albumin 3.8 Urine Color Yellow Urine Appearance Clear Urine pH 5.0 Ur Specific [place] 1.028 Urine Protein Negative Urine Glucose (UA) Negative Urine Ketones Negative Urine Blood Negative Urine Nitrite Negative Urine Bilirubin Negative Urine Urobilinogen Negative Ur Leukocyte Esterase Negative RPR Titer 02/22/18 06:20 WBC RBC Hgb Hct MCV MCH MCHC RDW Plt Count MPV Sodium Potassium Chloride Carbon Dioxide Anion Gap BUN Creatinine Creat Clearance w eGFR Random Glucose Calcium Total Bilirubin AST ALT Alkaline Phosphatase Total Protein Albumin Urine Color Urine Appearance Urine pH Ur Specific [place] Urine Protein Urine Glucose (UA) Urine Ketones Urine Blood Urine Nitrite Urine Bilirubin Urine Urobilinogen Ur Leukocyte Esterase RPR Titer Nonreactive aaox3 ambulating no acute distress Assessment: 04/15/18 11:42 withdrawal sx Plan: continue detox increase fluids
[2018-02-23] MEDS: QUEtiapine FUMARATE 100 MG TABLET (FP) PO SCH (22:43)
[2018-02-23] MEDS: THIAMINE HCL 100 MG TABLET (FP) PO SCH (22:43)
[2018-02-24] MEDS ORDERED: METHADONE HCL 5 MG TABLET (FOR DETOX USE ONLY) PO ONE (10:00)
[2018-02-24] MEDS: diazePAM 5 MG TABLET PO PRN (10:53)
[2018-02-24] MEDS: cloNIDine HCL 0.1 MG TABLET PO SCH (10:53)
[2018-02-24] MEDS: PANTOPRAZOLE 20 MG TABLET (FP) PO SCH (10:53)
[2018-02-24] MEDS: PRENATAL VITAMINS W/ FOLIC ACID TABLET (FP) PO SCH (10:53)
[2018-02-24] MEDS: NICOTINE 21 MG/24 HOURS TOPICAL PATCH TD SCH (11:07)
--- NOTE | 2018-02-24 12:44 | EKG ---
Test Reason : Blood Pressure : / mmHG Vent. Rate : 073 BPM Atrial Rate : 073 BPM P-R Int : 132 ms QRS Dur : 088 ms QT Int : 396 ms P-R-T Axes : 044 049 060 degrees QTc Int : 436 ms NORMAL SINUS RHYTHM NORMAL ECG WHEN COMPARED WITH ECG OF 30-MAY-2017 14:10, NO SIGNIFICANT CHANGE WAS FOUND Confirmed by VIPUL LEONE MD ([id number]) on 02/24/2018 12:43:45 PM Referred By: Confirmed By:VIPUL LEONE MD
[2018-02-24 14:17] VITALS: BP 114/67; PULSE 80; TEMP 96
--- NOTE | 2018-02-24 14:47 | PN ---
S Progress Note Note: PT DECLINED TO CONTINUE WITH DETOX STATING "I'M FINE, I JUST WANT TO LEAVE." ALL ENCOURAGEMENT TO COMPLETE DETOX FAILED.
--- NOTE | 2018-02-24 14:52 | DS ---
[facility] Detox Discharge Summary Admission Date: 02/21/18 Discharge Date: 02/24/18 - History Present History: Cannabis Dependence, Cocaine Dependence, Opioid Dependence, Pcp Dependence Additional Comments: PT DECLINED TO CONTINUE WITH DETOX. ALERT O X 3. NO ACUTE DISTRESS. PT REPORTS HIS PRIMARY CARE IS AT [facility], [facility] AND WILL F/U AFTER DISCHARGE NEEDED.. Pertinent Past History: PLEASE SEE BELOW - Physical Exam Results Vital Signs: Vital Signs Temperature 96 F L 02/24/18 14:13 Pulse Rate 80 02/24/18 14:13 Respiratory Rate 20 02/24/18 14:13 Blood Pressure 114/67 02/24/18 14:13 O2 Sat by Pulse Oximetry (%) Pertinent Admission Physical Exam Findings: WITHDRAWAL SX Laboratory Last Values WBC 4.5 K/mm3 (4.0-10.0) 02/22/18 06:20 RBC 4.23 M/mm3 (4.00-5.60) 02/22/18 06:20 Hgb 12.2 GM/dL (11.7-16.9) D 02/22/18 06:20 Hct 36.4 % (35.4-49) D 02/22/18 06:20 MCV 86.1 fl (80-96) 02/22/18 06:20 MCH 28.8 pg (25.7-33.7) 02/22/18 06:20 MCHC 33.4 g/dl (32.0-35.9) 02/22/18 06:20 RDW 13.8 % (11.9-15.9) 02/22/18 06:20 Plt Count 345 K/MM3 (134-434) 02/22/18 06:20 MPV 8.3 fl (7.5-11.1) 02/22/18 06:20 Sodium 141 mmol/L (136-145) 02/22/18 06:20 Potassium 4.5 mmol/L (3.5-5.1) 02/22/18 06:20 Chloride 104 mmol/L (98-107) 02/22/18 06:20 Carbon Dioxide 29 mmol/L (21-32) 02/22/18 06:20 Anion Gap 8 (8-16) 02/22/18 06:20 BUN 14 mg/dL (7-18) 02/22/18 06:20 Creatinine 1.1 mg/dL (0.7-1.3) 02/22/18 06:20 Creat Clearance w eGFR > 60 (>60) 02/22/18 06:20 Random Glucose 118 mg/dL (74-106) H D 02/22/18 06:20 Calcium 9.0 mg/dL (8.5-10.1) 02/22/18 06:20 Total Bilirubin 0.4 mg/dL (0.2-1.0) 02/22/18 06:20 AST 25 U/L (15-37) 02/22/18 06:20 ALT 18 U/L (12-78) D 02/22/18 06:20 Alkaline Phosphatase 69 U/L (45-117) 02/22/18 06:20 Total Protein 7.2 g/dl (6.4-8.2) 02/22/18 06:20 Albumin 3.8 g/dl (3.4-5.0) 02/22/18 06:20 Urine Color Yellow 02/21/18 18:40 Urine Appearance Clear 02/21/18 18:40 Urine pH 5.0 (5.0-8.0) 02/21/18 18:40 Ur Specific [place] 1.028 (1.001-1.035) 02/21/18 18:40 Urine Protein Negative (NEGATIVE) 02/21/18 18:40 Urine Glucose (UA) Negative (NEGATIVE) 02/21/18 18:40 Urine Ketones Negative (NEGATIVE) 02/21/18 18:40 Urine Blood Negative (NEGATIVE) 02/21/18 18:40 Urine Nitrite Negative (NEGATIVE) 02/21/18 18:40 Urine Bilirubin Negative (<2.0 mg/dL) 02/21/18 18:40 Urine Urobilinogen Negative mg/dL (0.2-1.0) 02/21/18 18:40 Ur Leukocyte Esterase Negative (NEGATIVE) 02/21/18 18:40 RPR Titer Nonreactive (NONREACTIVE) 02/22/18 06:20 - Treatment Hospital Course: Discharged Condition Good - Medication Discharge Medications: Ambulatory Orders Quetiapine Fumarate [Seroquel] 100 mg PO HS #30 tablet 02/21/18 - Diagnosis (1) Cannabis dependence, uncomplicated Status: Acute (2) Cocaine dependence, uncomplicated Status: Acute (3) Dehydration Status: Acute (4) Hepatitis C Status: Acute Qualifiers: Viral hepatitis chronicity: chronic Hepatic coma status: without hepatic coma Qualified Code(s): B18.2 - Chronic viral hepatitis C (5) Nicotine dependence Status: Acute Qualifiers: Nicotine product type: cigarettes Substance use status: uncomplicated Qualified Code(s): F17.210 - Nicotine dependence, cigarettes, uncomplicated (6) Opioid dependence with withdrawal Status: Acute (7) Hep C w/o coma, chronic Status: Chronic (8) PCP abuse Status: Acute - AMA Did Patient Leave Against Medical Advice: Yes (AMA)
--- NOTE | 2018-02-24 14:52 | PN ---
BHS Progress Note (SOAP) Subjective: Sweating, Body Aches, Fatigue. Objective: PATIENT A & O X 3, OBSERVED AMBULATING ON UNIT. NO ACUTE DISTRESS. 02/24/18 14:50 Vital Signs Temperature 96 F L 02/24/18 14:13 Pulse Rate 80 02/24/18 14:13 Respiratory Rate 20 02/24/18 14:13 Blood Pressure 114/67 02/24/18 14:13 O2 Sat by Pulse Oximetry (%) Laboratory Tests 02/21/18 02/22/18 02/22/18 18:40 06:20 06:20 WBC 4.5 RBC 4.23 Hgb 12.2 D Hct 36.4 D MCV 86.1 MCH 28.8 MCHC 33.4 RDW 13.8 Plt Count 345 MPV 8.3 Sodium 141 Potassium 4.5 Chloride 104 Carbon Dioxide 29 Anion Gap 8 BUN 14 Creatinine 1.1 Creat Clearance w eGFR > 60 Random Glucose 118 H D Calcium 9.0 Total Bilirubin 0.4 AST 25 ALT 18 D Alkaline Phosphatase 69 Total Protein 7.2 Albumin 3.8 Urine Color Yellow Urine Appearance Clear Urine pH 5.0 Ur Specific [place] 1.028 Urine Protein Negative Urine Glucose (UA) Negative Urine Ketones Negative Urine Blood Negative Urine Nitrite Negative Urine Bilirubin Negative Urine Urobilinogen Negative Ur Leukocyte Esterase Negative RPR Titer 02/22/18 06:20 WBC RBC Hgb Hct MCV MCH MCHC RDW Plt Count MPV Sodium Potassium Chloride Carbon Dioxide Anion Gap BUN Creatinine Creat Clearance w eGFR Random Glucose Calcium Total Bilirubin AST ALT Alkaline Phosphatase Total Protein Albumin Urine Color Urine Appearance Urine pH Ur Specific [place] Urine Protein Urine Glucose (UA) Urine Ketones Urine Blood Urine Nitrite Urine Bilirubin Urine Urobilinogen Ur Leukocyte Esterase RPR Titer Nonreactive LABS NOTED. Assessment: 02/24/18 14:51 WITHDRAWAL SYMPTOMS. Plan: CONTINUE DETOX. INCREASE DAILY PO FLUID INTAKE.
--- NOTE | 2018-02-24 14:53 | DS ---
[facility] Detox Discharge Summary Admission Date: 02/21/18 Discharge Date: 02/24/18 - History Present History: Cocaine Dependence, Opioid Dependence, Pcp Dependence - Physical Exam Results Vital Signs: Vital Signs Temperature 96 F L 02/24/18 14:13 Pulse Rate 80 02/24/18 14:13 Respiratory Rate 20 02/24/18 14:13 Blood Pressure 114/67 02/24/18 14:13 O2 Sat by Pulse Oximetry (%) - Medication Discharge Medications: Ambulatory Orders Quetiapine Fumarate [Seroquel] 100 mg PO HS #30 tablet 02/21/18 - Diagnosis (1) Cannabis dependence, uncomplicated Status: Acute (2) Cocaine dependence, uncomplicated Status: Acute (3) Hepatitis C Status: Acute Qualifiers: Viral hepatitis chronicity: chronic Hepatic coma status: without hepatic coma Qualified Code(s): B18.2 - Chronic viral hepatitis C (4) IV drug user Status: Acute (5) Insomnia secondary to depression with anxiety Status: Acute (6) Nicotine dependence Status: Acute Qualifiers: Nicotine product type: cigarettes Substance use status: uncomplicated Qualified Code(s): F17.210 - Nicotine dependence, cigarettes, uncomplicated (7) Opioid dependence with withdrawal Status: Acute (8) PCP abuse Status: Acute (9) Dehydration Status: Acute
[2018-02-25] MEDS ORDERED: METHADONE HCL 10 MG TABLET (FOR DETOX USE ONLY) PO ONE (10:00)
[2018-02-26] MEDS ORDERED: METHADONE HCL 5 MG TABLET (FOR DETOX USE ONLY) PO ONE (06:00)
== END 2018-02-24 14:39 | disposition left against medical advice (07) | DRG 770 ==
LOC: YASAS 09:28 → Y3N 13:01
PROVIDERS: ADMIT Internal Medicine; ATTEND Internal Medicine
PROC: HZ2ZZZZ Detoxification Services for Substance Abuse Treatment (ICD-10-PCS; principal; 2018-02-21)
DX: F11.23 Opioid dependence with withdrawal (principal); F14.20 Cocaine dependence, uncomplicated; F12.20 Cannabis dependence, uncomplicated; F16.20 Hallucinogen dependence, uncomplicated; F17.210 Nicotine dependence, cigarettes, uncomplicated; F19.24 Other psychoactive substance dependence with psychoactive substance-induced mood disorder; E87.6 Hypokalemia; B18.2 Chronic viral hepatitis C
CPT/HCPCS: 36415; 80053; 81003; 85027; 86593; 93005; 93010; J0735

== ENCOUNTER 2018-09-09 09:25 | Inpatient (IN) | payer OTHER ==
[2018-09-09 09:44] VITALS: BMI 24.5
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
[2018-09-09] MEDS ORDERED: LOPERAMIDE HCL 2 MG CAPSULE PO PRN (10:36)
[2018-09-09] MEDS ORDERED: P-EPHED 60MG/TRIPROLIDI 2.5MG TABLET PO PRN (10:36)
[2018-09-09] MEDS ORDERED: MAGNESIUM HYDROX 2400MG/30ML ORAL SUSPENSION 30 ML CUP PO PRN (10:36)
[2018-09-09] MEDS ORDERED: MENTHOL/PHENOL 1 EACH UD MM PRN (10:36)
[2018-09-09] MEDS ORDERED: ACETAMINOPHEN 325 MG TABLET (FP) PO PRN (10:36)
[2018-09-09] MEDS ORDERED: MAGNESIUM CITRATE 300 ML BOTTLE PO PRN (10:36)
[2018-09-09] MEDS ORDERED: guaiFENesin/D-METHORPHAN HB 10 ML UNIT-DOSE CUPS PO PRN (10:36)
[2018-09-09] MEDS ORDERED: MAG HYDROX/AL HYDROX/SIMETH 30 ML UNIT-DOSE CUP PO PRN (10:36)
[2018-09-09] MEDS ORDERED: METHADONE HCL 10 MG TABLET (FOR DETOX USE ONLY) PO ONE ×2 (10:45→23:00)
[2018-09-09] MEDS ORDERED: diazePAM 5 MG TABLET PO ONE (10:45)
[2018-09-09] MEDS: NICOTINE 21 MG/24 HOURS TOPICAL PATCH TD SCH (11:32)
[2018-09-09] MEDS: diazePAM 5 MG TABLET PO SCH ×2 (14:57→22:13)
[2018-09-09 15:04] LABS: URINE APPEARANCE CLEAR; URINE BILIRUBIN NEGATIVE (<2.0 mg/dL); URINE COLOR YELLOW; URINE GLUCOSE (UA) NEGATIVE (NEGATIVE); URINE KETONE NEGATIVE (NEGATIVE); URINE LEUK ESTERASE NEGATIVE (NEGATIVE); URINE NITRITE NEGATIVE (NEGATIVE); URINE PROTEIN NEGATIVE (NEGATIVE); URINE UROBILINOGEN 4.0 E.U/dl mg/dL (0.2-1.0)
--- NOTE | 2018-09-09 16:06 | EKG ---
Test Reason : Blood Pressure : / mmHG Vent. Rate : 062 BPM Atrial Rate : 062 BPM P-R Int : 140 ms QRS Dur : 096 ms QT Int : 382 ms P-R-T Axes : 042 047 048 degrees QTc Int : 387 ms NORMAL SINUS RHYTHM NORMAL ECG WHEN COMPARED WITH ECG OF 21-FEB-2018 15:37, NO SIGNIFICANT CHANGE WAS FOUND Confirmed by MD RAYRAY, OLIVIA ([id number]) on 09/09/2018 4:06:11 PM Referred By: Confirmed By:OLIVIA SEO MD
[2018-09-09] MEDS ORDERED: MELATONIN 5 MG TABLETS PO PRN (22:00)
[2018-09-09] MEDS: THIAMINE HCL 100 MG TABLET (FP) PO SCH (22:13)
[2018-09-10] MEDS: diazePAM 5 MG TABLET PO SCH ×3 (07:00→22:28)
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
[2018-09-10] MEDS ORDERED: PRENATAL VITAMINS W/ FOLIC ACID TABLET (FP) PO SCH (10:00)
[2018-09-10] MEDS ORDERED: METHADONE HCL 10 MG TABLET (FOR DETOX USE ONLY) PO SCH (10:00)
[2018-09-10 10:01] LABS: HEMATOCRIT 42.1 % (35.4-49); HEMOGLOBIN 13.5 GM/dL (11.7-16.9); MCH 27.7 pg (25.7-33.7); MEAN CELL VOLUME 86.5 fl (80-96); PLATELET COUNT 221 K/MM3 (134-434); RBC 4.87 M/mm3 (4.00-5.60); RDW 13.4 % (11.9-15.9); WHITE BLOOD COUNT 2.8 K/mm3 (4.0-10.0)
[2018-09-10] MEDS: NICOTINE 21 MG/24 HOURS TOPICAL PATCH TD SCH (10:21)
[2018-09-10] MEDS: diazePAM 5 MG TABLET PO PRN (10:21)
[2018-09-10] MEDS: IBUPROFEN 400 MG TABLET (FP) PO PRN (10:22)
[2018-09-10 10:31] LABS: ALBUMIN 3.2 g/dl (3.4-5.0); ALK PHOS 65 U/L (45-117); ANION GAP 8 MMOL/L (8-16); BILIRUBIN,TOTAL 0.4 mg/dL (0.2-1); BLOOD UREA NITROGEN 14 mg/dL (7-18); CALCIUM 8.1 mg/dL (8.5-10.1); CHLORIDE 106 mmol/L (98-107); CO2 25 mmol/L (21-32); CREATININE 0.9 mg/dL (0.55-1.3); GLUCOSE,RANDOM 89 mg/dL (74-106); POTASSIUM 4.5 mmol/L (3.5-5.1); SGOT/AST 27 U/L (15-37); SGPT/ALT 35 U/L (13-61); SODIUM 139 mmol/L (136-145)
--- NOTE | 2018-09-10 11:12 | PN ---
[facility] CIWA - CIWA Score Nausea/Vomitin-No Nausea/No Vomiting Muscle Tremors: 3 Anxiety: 3 Agitation: 2 Paroxysmal Sweats: 1-Minimal Palms Moist Orientation: 0-Oriented Tacttile Disturbances: 1-Very Mild Itch/Numbness Auditory Disturbances: 0-None Visual Disturbances: 0-None Headache: 1-Very Mild CIWA-Ar Total Score: 11 S COWS - Scale Resting Pulse: 0= [place] 80 or Below Sweatin= Chills/Flushing Restless Observation: 1= Difficult to Sit Still Pupil Size: 0= Normal to Room Light Bone or Joint Aches: 2= Severe Diffuse Aches Runny Nose/ Eye Tearin= Nasal Congestion GI Upset > 30mins: 2= Nausea/Diarrhea Tremor Observation of Outstretched Hands: 1= Tremor [place], Not Seen Yawning Observation: 1= 1-2x During Session Anxiety or Irritability: 1=Feels Anxious/Irritable Goose Flesh Skin: 0=Smooth Skin COWS Score: 10 [facility] Progress Note (SOAP) Subjective: back pain sweat tremor body ache trouble sleep at night Objective: 09/10/18 11:15 Vital Signs Temperature 98.4 F 09/10/18 09:28 Pulse Rate 88 09/10/18 09:28 Respiratory Rate 16 09/10/18 09:28 Blood Pressure 115/77 09/10/18 09:28 O2 Sat by Pulse Oximetry (%) Laboratory Last Values WBC 2.8 K/mm3 (4.0-10.0) L 09/10/18 07:00 RBC 4.87 M/mm3 (4.00-5.60) 09/10/18 07:00 Hgb 13.5 GM/dL (11.7-16.9) 09/10/18 07:00 Hct 42.1 % (35.4-49) 09/10/18 07:00 MCV 86.5 fl (80-96) 09/10/18 07:00 MCH 27.7 pg (25.7-33.7) 09/10/18 07:00 MCHC 32.0 g/dl (32.0-35.9) 09/10/18 07:00 RDW 13.4 % (11.9-15.9) 09/10/18 07:00 Plt Count 221 K/MM3 (134-434) 09/10/18 07:00 MPV 8.0 fl (7.5-11.1) 09/10/18 07:00 Sodium 139 mmol/L (136-145) 09/10/18 07:00 Potassium 4.5 mmol/L (3.5-5.1) 09/10/18 07:00 Chloride 106 mmol/L (98-107) 09/10/18 07:00 Carbon Dioxide 25 mmol/L (21-32) 09/10/18 07:00 Anion Gap 8 MMOL/L (8-16) 09/10/18 07:00 BUN 14 mg/dL (7-18) 09/10/18 07:00 Creatinine 0.9 mg/dL (0.55-1.3) 09/10/18 07:00 Creat Clearance w eGFR > 60 (>60) 09/10/18 07:00 Random Glucose 89 mg/dL (74-106) 09/10/18 07:00 Calcium 8.1 mg/dL (8.5-10.1) L 09/10/18 07:00 Total Bilirubin 0.4 mg/dL (0.2-1) 09/10/18 07:00 AST 27 U/L (15-37) 09/10/18 07:00 ALT 35 U/L (13-61) 09/10/18 07:00 Alkaline Phosphatase 65 U/L (45-117) 09/10/18 07:00 Total Protein 6.0 g/dl (6.4-8.2) L 09/10/18 07:00 Albumin 3.2 g/dl (3.4-5.0) L 09/10/18 07:00 Urine Color Yellow 09/09/18 12:00 Urine Appearance Clear 09/09/18 12:00 Urine pH 7.0 (5.0-8.0) D 09/09/18 12:00 Ur Specific [place] 1.024 (1.010-1.035) 09/09/18 12:00 Urine Protein Negative (NEGATIVE) 09/09/18 12:00 Urine Glucose (UA) Negative (NEGATIVE) 09/09/18 12:00 Urine Ketones Negative (NEGATIVE) 09/09/18 12:00 Urine Blood Negative (NEGATIVE) 09/09/18 12:00 Urine Nitrite Negative (NEGATIVE) 09/09/18 12:00 Urine Bilirubin Negative (<2.0 mg/dL) 09/09/18 12:00 Urine Urobilinogen 4.0 e.u/dl mg/dL (0.2-1.0) 09/09/18 12:00 Ur Leukocyte Esterase Negative (NEGATIVE) 09/09/18 12:00 lab noted 09/10/18 11:17 calcium rich food hiv positive Assessment: 09/10/18 11:18 withdrawal sx hiv Plan: continue detox strong recommend infectious disease follow up possible resume ART medication
[2018-09-10] MEDS ORDERED: FLU VACCINE QUAD 60 MCG/0.5 ML (MDV 18-19) IM ONE (12:00)
[2018-09-10] MEDS: THIAMINE HCL 100 MG TABLET (FP) PO SCH (22:27)
[2018-09-11] MEDS: diazePAM 5 MG TABLET PO PRN (05:52)
[2018-09-11] MEDS: IBUPROFEN 400 MG TABLET (FP) PO PRN (05:53)
[2018-09-11 07:01] VITALS: BP 104/57; PULSE 57; TEMP 97.7
--- NOTE | 2018-09-11 08:52 | DS ---
[facility] Detox Discharge Summary Admission Date: 09/09/18 Discharge Date: 09/11/18 - History Present History: Alcohol Dependence, Sedative Dependence Additional Comments: 38 years old male admitted on 09/09/18 for benzo and opiate withdrawal sx insists to leave the detox unit that he wants to go home and will go to [facility] care alert oriented x 3 no acute distress denies suicidal denies homocidal ideation no self destructive behavior - Physical Exam Results Vital Signs: Vital Signs Temperature 97.7 F 09/11/18 07:01 Pulse Rate 57 L 09/11/18 07:01 Respiratory Rate 18 09/11/18 07:01 Blood Pressure 104/57 L 09/11/18 07:01 O2 Sat by Pulse Oximetry (%) Pertinent Admission Physical Exam Findings: opiate and benzo withdrawal sx Vital Signs Temperature 97.7 F 09/11/18 07:01 Pulse Rate 57 L 09/11/18 07:01 Respiratory Rate 18 09/11/18 07:01 Blood Pressure 104/57 L 09/11/18 07:01 O2 Sat by Pulse Oximetry (%) Laboratory Last Values WBC 2.8 K/mm3 (4.0-10.0) L 09/10/18 07:00 RBC 4.87 M/mm3 (4.00-5.60) 09/10/18 07:00 Hgb 13.5 GM/dL (11.7-16.9) 09/10/18 07:00 Hct 42.1 % (35.4-49) 09/10/18 07:00 MCV 86.5 fl (80-96) 09/10/18 07:00 MCH 27.7 pg (25.7-33.7) 09/10/18 07:00 MCHC 32.0 g/dl (32.0-35.9) 09/10/18 07:00 RDW 13.4 % (11.9-15.9) 09/10/18 07:00 Plt Count 221 K/MM3 (134-434) 09/10/18 07:00 MPV 8.0 fl (7.5-11.1) 09/10/18 07:00 Sodium 139 mmol/L (136-145) 09/10/18 07:00 Potassium 4.5 mmol/L (3.5-5.1) 09/10/18 07:00 Chloride 106 mmol/L (98-107) 09/10/18 07:00 Carbon Dioxide 25 mmol/L (21-32) 09/10/18 07:00 Anion Gap 8 MMOL/L (8-16) 09/10/18 07:00 BUN 14 mg/dL (7-18) 09/10/18 07:00 Creatinine 0.9 mg/dL (0.55-1.3) 09/10/18 07:00 Creat Clearance w eGFR > 60 (>60) 09/10/18 07:00 Random Glucose 89 mg/dL (74-106) 09/10/18 07:00 Calcium 8.1 mg/dL (8.5-10.1) L 09/10/18 07:00 Total Bilirubin 0.4 mg/dL (0.2-1) 09/10/18 07:00 AST 27 U/L (15-37) 09/10/18 07:00 ALT 35 U/L (13-61) 09/10/18 07:00 Alkaline Phosphatase 65 U/L (45-117) 09/10/18 07:00 Total Protein 6.0 g/dl (6.4-8.2) L 09/10/18 07:00 Albumin 3.2 g/dl (3.4-5.0) L 09/10/18 07:00 Urine Color Yellow 09/09/18 12:00 Urine Appearance Clear 09/09/18 12:00 Urine pH 7.0 (5.0-8.0) D 09/09/18 12:00 Ur Specific [place] 1.024 (1.010-1.035) 09/09/18 12:00 Urine Protein Negative (NEGATIVE) 09/09/18 12:00 Urine Glucose (UA) Negative (NEGATIVE) 09/09/18 12:00 Urine Ketones Negative (NEGATIVE) 09/09/18 12:00 Urine Blood Negative (NEGATIVE) 09/09/18 12:00 Urine Nitrite Negative (NEGATIVE) 09/09/18 12:00 Urine Bilirubin Negative (<2.0 mg/dL) 09/09/18 12:00 Urine Urobilinogen 4.0 e.u/dl mg/dL (0.2-1.0) 09/09/18 12:00 Ur Leukocyte Esterase Negative (NEGATIVE) 09/09/18 12:00 RPR Titer Nonreactive (NONREACTIVE) 09/10/18 07:00 HIV 1&2 Antibody Screen Negative 09/09/18 07:00 HIV P24 Antigen Negative 09/09/18 07:00 lab noted - Treatment Hospital Course: Detox Protocol Followed, Responded well Patient has Accepted a Rehab Referral [facility] - Medication Discharge Medications: Ambulatory Orders NK [No Known Home Medication] 09/09/18 - Diagnosis (1) Hep C w/o coma, chronic Current Visit: No Status: Chronic (2) Opioid dependence with withdrawal Current Visit: Yes Status: Acute (3) Sedative, hypnotic or anxiolytic dependence with withdrawal, uncomplicated Current Visit: Yes Status: Acute (4) Drug-induced mood disorder Current Visit: Yes Status: Suspected (5) Hepatitis C Current Visit: No Status: Chronic Qualifiers: Viral hepatitis chronicity: chronic Hepatic coma status: without hepatic coma Qualified Code(s): B18.2 - Chronic viral hepatitis C (6) Nicotine dependence Current Visit: Yes Status: Acute Qualifiers: Nicotine product type: cigarettes Substance use status: in withdrawal Qualified Code(s): F17.213 - Nicotine dependence, cigarettes, with withdrawal (7) Weight loss Current Visit: Yes Status: Acute (8) Cannabis dependence, uncomplicated Current Visit: No Status: Acute (9) Cocaine dependence, uncomplicated Current Visit: No Status: Acute (10) Depression Current Visit: No Status: Suspected Qualifiers: Depression Type: dysthymia Qualified Code(s): F34.1 - Dysthymic disorder (11) Tobacco abuse Current Visit: Yes Status: Acute (12) IV drug user Current Visit: Yes Status: Chronic (13) Insomnia secondary to depression with anxiety Current Visit: No Status: Chronic (14) Insomnia Current Visit: No Status: Chronic Qualifiers: Insomnia type: unspecified Qualified Code(s): G47.00 - Insomnia, unspecified (15) Encounter for hepatitis C virus screening test for high risk patient Current Visit: No Status: Chronic (16) Pityriasis versicolor Current Visit: No Status: Chronic (17) Bipolar disorder Current Visit: Yes Status: Suspected Qualifiers: Active/Remission status: in partial remission Most recent bipolar episode type: mixed Qualified Code(s): F31.77 - Bipolar disorder, in partial remission , most recent episode mixed - AMA Did Patient Leave Against Medical Advice: Yes
[2018-09-11] MEDS ORDERED: diazePAM 5 MG TABLET PO SCH (10:00)
[2018-09-11] MEDS ORDERED: METHADONE HCL 5 MG TABLET (FOR DETOX USE ONLY) PO SCH (10:00)
[2018-09-13] MEDS ORDERED: diazePAM 5 MG TABLET PO SCH (10:00)
[2018-09-13] MEDS ORDERED: METHADONE HCL 10 MG TABLET (FOR DETOX USE ONLY) PO SCH (10:00)
[2018-09-14] MEDS ORDERED: METHADONE HCL 5 MG TABLET (FOR DETOX USE ONLY) PO SCH (06:00)
== END 2018-09-11 08:43 | disposition left against medical advice (07) | DRG 770 ==
LOC: YASAS 09:25 → Y6N 10:19
PROC: HZ2ZZZZ Detoxification Services for Substance Abuse Treatment (ICD-10-PCS; principal; 2018-09-09)
DX: F11.23 Opioid dependence with withdrawal (principal); F13.230 Sedative, hypnotic or anxiolytic dependence with withdrawal, uncomplicated; F14.20 Cocaine dependence, uncomplicated; F12.20 Cannabis dependence, uncomplicated; F17.213 Nicotine dependence, cigarettes, with withdrawal; F19.24 Other psychoactive substance dependence with psychoactive substance-induced mood disorder; F34.1 Dysthymic disorder; F51.05 Insomnia due to other mental disorder; F31.77 Bipolar disorder, in partial remission, most recent episode mixed; B18.2 Chronic viral hepatitis C; B36.0 Pityriasis versicolor; Z21 Asymptomatic human immunodeficiency virus [HIV] infection status; Z86.69 Personal history of other diseases of the nervous system and sense organs; Z91.013 Allergy to seafood; Z91.5 Personal history of self-harm
CPT/HCPCS: 36415; 80053; 81003; 85027; 86593; 87389; 90688; 93005; 93010; G0008

== ENCOUNTER 2018-12-31 10:01 | Inpatient (IN) | payer OTHER ==
[2018-12-31 10:07] VITALS: BMI 23.2
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
[2018-12-31] MEDS ORDERED: MAGNESIUM CITRATE 300 ML BOTTLE PO PRN (12:22)
[2018-12-31] MEDS ORDERED: guaiFENesin/D-METHORPHAN HB 10 ML UNIT-DOSE CUPS PO PRN (12:22)
[2018-12-31] MEDS ORDERED: LOPERAMIDE HCL 2 MG CAPSULE PO PRN (12:22)
[2018-12-31] MEDS ORDERED: MENTHOL/PHENOL 1 EACH UD MM PRN (12:22)
[2018-12-31] MEDS ORDERED: MAG HYDROX/AL HYDROX/SIMETH 30 ML UNIT-DOSE CUP PO PRN (12:22)
[2018-12-31] MEDS ORDERED: MAGNESIUM HYDROX 2400MG/30ML ORAL SUSPENSION 30 ML CUP PO PRN (12:22)
[2018-12-31] MEDS ORDERED: P-EPHED 60MG/TRIPROLIDI 2.5MG TABLET PO PRN (12:22)
[2018-12-31] MEDS ORDERED: diazePAM 5 MG TABLET PO ONE (13:15)
[2018-12-31] MEDS ORDERED: METHADONE HCL 10 MG TABLET (FOR DETOX USE ONLY) PO ONE ×2 (13:30→23:00)
[2018-12-31] MEDS: NICOTINE 21 MG/24 HOURS TOPICAL PATCH TD SCH (13:49)
[2018-12-31] MEDS: CYCLOBENZAPRINE HCL 10 MG TABLET (FP) PO PRN (13:49)
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
[2018-12-31] MEDS ORDERED: MELATONIN 5 MG TABLETS PO PRN (22:00)
[2018-12-31] MEDS: THIAMINE HCL 100 MG TABLET (FP) PO SCH (22:11)
[2018-12-31] MEDS: MIRTAZAPINE 15 MG TABLET (FP) PO SCH (22:12)
[2018-12-31] MEDS: cloNIDine HCL 0.1 MG TABLET PO SCH (22:12)
[2018-12-31] MEDS: diazePAM 5 MG TABLET PO SCH (22:12)
[2019-01-01] MEDS: diazePAM 5 MG TABLET PO SCH ×3 (06:07→22:25)
[2019-01-01] MEDS ORDERED: METHADONE HCL 10 MG TABLET (FOR DETOX USE ONLY) PO SCH (10:00)
--- NOTE | 2019-01-01 10:21 | PN ---
[facility] CIWA - CIWA Score Nausea/Vomitin-Mild Nausea/No Vomiting Muscle Tremors: 3 Anxiety: 2 Agitation: 3 Paroxysmal Sweats: 1-Minimal Palms Moist Orientation: 0-Oriented Tacttile Disturbances: 0-None Auditory Disturbances: 0-None Visual Disturbances: 0-None Headache: 2-Mild CIWA-Ar Total Score: 12 [facility] COWS - Scale Resting Pulse: 0= [place] 80 or Below Sweatin= Chills/Flushing Restless Observation: 0= Sits Still Pupil Size: 0= Normal to Room Light Bone or Joint Aches: 2= Severe Diffuse Aches Runny Nose/ Eye Tearin= Nasal Congestion GI Upset > 30mins: 2= Nausea/Diarrhea Tremor Observation of Outstretched Hands: 2= Slight Tremor Visible Yawning Observation: 2= >3x During Session Anxiety or Irritability: 2=Irritable/Anxious Goose Flesh Skin: 0=Smooth Skin COWS Score: 12 [facility] Progress Note (SOAP) Subjective: body aches tremor muscle cramping sweating Objective: 01/01/19 10:21 Vital Signs Temperature 96.7 F L 01/01/19 09:24 Pulse Rate 73 01/01/19 09:24 Respiratory Rate 18 01/01/19 09:24 Blood Pressure 130/78 01/01/19 09:24 O2 Sat by Pulse Oximetry (%) lab pending Assessment: 01/01/19 10:22 withdrawal sx Plan: continue detox
[2019-01-01] MEDS: NICOTINE 21 MG/24 HOURS TOPICAL PATCH TD SCH (10:23)
[2019-01-01] MEDS: PRENATAL VITAMINS W/ FOLIC ACID TABLET (FP) PO SCH (10:23)
[2019-01-01] MEDS: cloNIDine HCL 0.1 MG TABLET PO SCH ×2 (10:23→22:25)
[2019-01-01] MEDS: diazePAM 5 MG TABLET PO PRN (10:24)
[2019-01-01 10:41] LABS: HEMATOCRIT 39.2 % (35.4-49); MCH 28.8 pg (25.7-33.7); MCHC 33.2 g/dl (32.0-35.9); MEAN CELL VOLUME 86.8 fl (80-96); MEAN PLT VOLUME 7.8 fl (7.5-11.1); PLATELET COUNT 206 K/MM3 (134-434); RBC 4.51 M/mm3 (4.00-5.60); RDW 14.7 % (11.9-15.9); WHITE BLOOD COUNT 3.1 K/mm3 (4.0-10.0)
[2019-01-01 11:47] LABS: ALBUMIN 3.1 g/dl (3.4-5.0); ALK PHOS 66 U/L (45-117); ANION GAP 5 MMOL/L (8-16); BILIRUBIN,TOTAL 0.2 mg/dL (0.2-1); BLOOD UREA NITROGEN 19 mg/dL (7-18); CHLORIDE 108 mmol/L (98-107); CO2 28 mmol/L (21-32); CREATININE 0.9 mg/dL (0.55-1.3); GLUCOSE,RANDOM 63 mg/dL (74-106); POTASSIUM 3.9 mmol/L (3.5-5.1); SGOT/AST 25 U/L (15-37); SGPT/ALT 30 U/L (13-61); SODIUM 141 mmol/L (136-145); TOT PROT 5.9 g/dl (6.4-8.2)
[2019-01-01] MEDS: MIRTAZAPINE 15 MG TABLET (FP) PO SCH (22:25)
[2019-01-01] MEDS: THIAMINE HCL 100 MG TABLET (FP) PO SCH (22:25)
[2019-01-02] MEDS: diazePAM 5 MG TABLET PO PRN (07:17)
[2019-01-02] MEDS: cloNIDine HCL 0.1 MG TABLET PO SCH ×2 (10:10→22:19)
[2019-01-02] MEDS: PRENATAL VITAMINS W/ FOLIC ACID TABLET (FP) PO SCH (10:10)
[2019-01-02] MEDS: METHADONE HCL 5 MG TABLET (FOR DETOX USE ONLY) PO SCH (10:10)
[2019-01-02] MEDS: NICOTINE 21 MG/24 HOURS TOPICAL PATCH TD SCH (10:10)
[2019-01-02] MEDS: diazePAM 5 MG TABLET PO SCH ×2 (10:10→22:20)
[2019-01-02] MEDS: IBUPROFEN 400 MG TABLET (FP) PO PRN (12:37)
[2019-01-02] MEDS: CYCLOBENZAPRINE HCL 10 MG TABLET (FP) PO PRN ×2 (12:37→22:20)
--- NOTE | 2019-01-02 17:10 | PN ---
[facility] CIWA - CIWA Score Nausea/Vomitin-No Nausea/No Vomiting Muscle Tremors: 3 Anxiety: 3 Agitation: 1-Slight > Activity Paroxysmal Sweats: 3 Orientation: 0-Oriented Tacttile Disturbances: 0-None Auditory Disturbances: 0-None Visual Disturbances: 1-Very Mild Sensitivity Headache: 0-None Present CIWA-Ar Total Score: 11 [facility] COWS - Scale Resting Pulse: 0= [place] 80 or Below Sweatin= Chills/Flushing Restless Observation: 1= Difficult to Sit Still Pupil Size: 0= Normal to Room Light Bone or Joint Aches: 2= Severe Diffuse Aches Runny Nose/ Eye Tearin= None GI Upset > 30mins: 0= None Tremor Observation of Outstretched Hands: 2= Slight Tremor Visible Yawning Observation: 1= 1-2x During Session Anxiety or Irritability: 2=Irritable/Anxious Goose Flesh Skin: 0=Smooth Skin COWS Score: 9 S Progress Note (SOAP) Subjective: Body Aches, Tremors, Sweating. Objective: PATIENT A & O X 3, OBSERVED AMBULATING ON UNIT. IN NO ACUTE DISTRESS. 01/02/19 17:08 Vital Signs Temperature 97.0 F L 01/02/19 14:00 Pulse Rate 71 01/02/19 14:00 Respiratory Rate 18 01/02/19 14:00 Blood Pressure 126/76 01/02/19 14:00 O2 Sat by Pulse Oximetry (%) Laboratory Tests 01/01/19 01/01/19 01/01/19 06:00 08:38 08:38 WBC 3.1 L RBC 4.51 Hgb 13.0 Hct 39.2 MCV 86.8 MCH 28.8 MCHC 33.2 RDW 14.7 Plt Count 206 MPV 7.8 Sodium 141 Potassium 3.9 Chloride 108 H Carbon Dioxide 28 Anion Gap 5 L BUN 19 H Creatinine 0.9 Creat Clearance w eGFR > 60 Random Glucose 63 L Calcium 8.0 L Total Bilirubin 0.2 AST 25 ALT 30 Alkaline Phosphatase 66 Total Protein 5.9 L Albumin 3.1 L RPR Titer Nonreactive LABS NOTED. PATIENT HAS HAD LOW WBC COUNTS ON PREVIOUS ADMISSIONS. 01/02/19 17:09 Assessment: 01/02/19 17:09 WITHDRAWAL SYMPTOMS. LEUKOPENIA. Plan: CONTINUE DETOX.
[2019-01-02] MEDS: THIAMINE HCL 100 MG TABLET (FP) PO SCH (22:19)
[2019-01-02] MEDS: MIRTAZAPINE 15 MG TABLET (FP) PO SCH (22:20)
[2019-01-03] MEDS: diazePAM 5 MG TABLET PO PRN (06:12)
[2019-01-03] MEDS: NICOTINE 21 MG/24 HOURS TOPICAL PATCH TD SCH (10:13)
[2019-01-03] MEDS: METHADONE HCL 5 MG TABLET (FOR DETOX USE ONLY) PO SCH (10:13)
[2019-01-03] MEDS: diazePAM 5 MG TABLET PO SCH ×2 (10:14→22:20)
[2019-01-03] MEDS: cloNIDine HCL 0.1 MG TABLET PO SCH ×2 (10:14→22:20)
[2019-01-03] MEDS: PRENATAL VITAMINS W/ FOLIC ACID TABLET (FP) PO SCH (10:14)
[2019-01-03] MEDS: IBUPROFEN 400 MG TABLET (FP) PO PRN ×2 (10:15→17:46)
--- NOTE | 2019-01-03 13:01 | PN ---
[facility] Progress Note (SOAP) Subjective: sweats shakes Objective: 01/03/19 13:00 A & O x 3 in no acute distress chatting in hallway with other pt Vital Signs Temperature 96.5 F L 01/03/19 09:13 Pulse Rate 76 01/03/19 09:13 Respiratory Rate 18 01/03/19 09:13 Blood Pressure 125/73 01/03/19 09:13 O2 Sat by Pulse Oximetry (%) Assessment: 01/03/19 13:08 withdrawal sx Plan: Continue detox
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
--- NOTE | 2019-01-03 17:19 | PN ---
[facility] Progress Note Note: pt returned from ED in stable condition, Augmentin 875mg continued
[2019-01-03] MEDS: AMOX TR/POT CLAV 875MG/125MG TABLETS (FP) PO SCH (17:45)
[2019-01-03] MEDS: CYCLOBENZAPRINE HCL 10 MG TABLET (FP) PO PRN (22:20)
[2019-01-03] MEDS: THIAMINE HCL 100 MG TABLET (FP) PO SCH (22:20)
[2019-01-03] MEDS: MIRTAZAPINE 15 MG TABLET (FP) PO SCH (22:20)
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
[2019-01-04] MEDS: ACETAMINOPHEN 325 MG TABLET (FP) PO PRN ×3 (02:12→13:29)
[2019-01-04] MEDS: AMOX TR/POT CLAV 875MG/125MG TABLETS (FP) PO SCH ×2 (07:08→17:26)
--- NOTE | 2019-01-04 09:57 | PN ---
[facility] CIWA - CIWA Score Nausea/Vomitin-No Nausea/No Vomiting Muscle Tremors: 1-None Visible, but [place] Anxiety: 1-Mildly Anxious Agitation: 1-Slight > Activity Paroxysmal Sweats: 1-Minimal Palms Moist Orientation: 0-Oriented Tacttile Disturbances: 0-None Auditory Disturbances: 0-None Visual Disturbances: 0-None Headache: 1-Very Mild CIWA-Ar Total Score: 5 S COWS - Scale Resting Pulse: 0= [place] 80 or Below Sweatin= Chills/Flushing Restless Observation: 0= Sits Still Pupil Size: 0= Normal to Room Light Bone or Joint Aches: 1= Mild Discomfort Runny Nose/ Eye Tearin= Nasal Congestion GI Upset > 30mins: 0= None Tremor Observation of Outstretched Hands: 0= None Yawning Observation: 0= None Anxiety or Irritability: 1=Feels Anxious/Irritable Goose Flesh Skin: 0=Smooth Skin COWS Score: 4 S Progress Note (SOAP) Subjective: feeling better mild tremor less sweating right 4th finger sterile strips intact no discharge mild swell Objective: 01/04/19 09:55 Vital Signs Temperature 96 F L 01/04/19 09:15 Pulse Rate 66 01/04/19 09:15 Respiratory Rate 16 01/04/19 09:15 Blood Pressure 125/79 01/04/19 09:15 O2 Sat by Pulse Oximetry (%) Laboratory Last Values WBC 3.1 K/mm3 (4.0-10.0) L 01/01/19 06:00 RBC 4.51 M/mm3 (4.00-5.60) 01/01/19 06:00 Hgb 13.0 GM/dL (11.7-16.9) 01/01/19 06:00 Hct 39.2 % (35.4-49) 01/01/19 06:00 MCV 86.8 fl (80-96) 01/01/19 06:00 MCH 28.8 pg (25.7-33.7) 01/01/19 06:00 MCHC 33.2 g/dl (32.0-35.9) 01/01/19 06:00 RDW 14.7 % (11.9-15.9) 01/01/19 06:00 Plt Count 206 K/MM3 (134-434) 01/01/19 06:00 MPV 7.8 fl (7.5-11.1) 01/01/19 06:00 Sodium 141 mmol/L (136-145) 01/01/19 08:38 Potassium 3.9 mmol/L (3.5-5.1) 01/01/19 08:38 Chloride 108 mmol/L (98-107) H 01/01/19 08:38 Carbon Dioxide 28 mmol/L (21-32) 01/01/19 08:38 Anion Gap 5 MMOL/L (8-16) L 01/01/19 08:38 BUN 19 mg/dL (7-18) H 01/01/19 08:38 Creatinine 0.9 mg/dL (0.55-1.3) 01/01/19 08:38 Creat Clearance w eGFR > 60 (>60) 01/01/19 08:38 Random Glucose 63 mg/dL (74-106) L 01/01/19 08:38 Calcium 8.0 mg/dL (8.5-10.1) L 01/01/19 08:38 Total Bilirubin 0.2 mg/dL (0.2-1) 01/01/19 08:38 AST 25 U/L (15-37) 01/01/19 08:38 ALT 30 U/L (13-61) 01/01/19 08:38 Alkaline Phosphatase 66 U/L (45-117) 01/01/19 08:38 Total Protein 5.9 g/dl (6.4-8.2) L 01/01/19 08:38 Albumin 3.1 g/dl (3.4-5.0) L 01/01/19 08:38 RPR Titer Nonreactive (NONREACTIVE) 01/01/19 08:38 lab noted Assessment: 01/04/19 09:55 mild alcohol benzo opiate withdrawal sx Plan: continue detox augmenting e prescribed to pharmacy keep wound clean and dry free from irritation
[2019-01-04] MEDS ORDERED: BACITRACIN 0.9 GM PACKET TP SCH (10:00)
[2019-01-04] MEDS ORDERED: diazePAM 5 MG TABLET PO SCH (10:00)
[2019-01-04] MEDS ORDERED: METHADONE HCL 10 MG TABLET (FOR DETOX USE ONLY) PO SCH (10:00)
[2019-01-04] MEDS: PRENATAL VITAMINS W/ FOLIC ACID TABLET (FP) PO SCH (10:02)
[2019-01-04] MEDS: cloNIDine HCL 0.1 MG TABLET PO SCH ×2 (10:02→22:29)
[2019-01-04] MEDS: NICOTINE 21 MG/24 HOURS TOPICAL PATCH TD SCH (10:03)
[2019-01-04] MEDS: IBUPROFEN 400 MG TABLET (FP) PO PRN (17:24)
[2019-01-04] MEDS: MIRTAZAPINE 15 MG TABLET (FP) PO SCH (22:29)
[2019-01-04] MEDS: CYCLOBENZAPRINE HCL 10 MG TABLET (FP) PO PRN (22:29)
[2019-01-04] MEDS: THIAMINE HCL 100 MG TABLET (FP) PO SCH (22:29)
[2019-01-05] MEDS: ACETAMINOPHEN 325 MG TABLET (FP) PO PRN (04:48)
[2019-01-05] MEDS ORDERED: METHADONE HCL 5 MG TABLET (FOR DETOX USE ONLY) PO SCH (06:00)
[2019-01-05 06:18] VITALS: BP 115/73; PULSE 65; TEMP 97.6
[2019-01-05] MEDS: AMOX TR/POT CLAV 875MG/125MG TABLETS (FP) PO SCH (07:10)
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
== END 2019-01-05 08:55 | disposition home or self-care (01) | DRG 773 ==
LOC: YASAS 10:01 → Y3N 12:17
PROVIDERS: ADMIT Surgery; ATTEND Surgery
PROC: HZ2ZZZZ Detoxification Services for Substance Abuse Treatment (ICD-10-PCS; principal; 2018-12-31)
DX: F11.23 Opioid dependence with withdrawal (principal); F10.230 Alcohol dependence with withdrawal, uncomplicated; F14.20 Cocaine dependence, uncomplicated; F12.20 Cannabis dependence, uncomplicated; F17.213 Nicotine dependence, cigarettes, with withdrawal; F31.77 Bipolar disorder, in partial remission, most recent episode mixed; F19.24 Other psychoactive substance dependence with psychoactive substance-induced mood disorder; G47.00 Insomnia, unspecified; D72.819 Decreased white blood cell count, unspecified; S60.474A Other superficial bite of right ring finger, initial encounter; Y04.1XXA Assault by human bite, initial encounter; Y93.89 Activity, other specified; Y92.238 Other place in hospital as the place of occurrence of the external cause; Y99.8 Other external cause status; R63.4 Abnormal weight loss; Z68.23 Body mass index [BMI] 23.0-23.9, adult; Z91.5 Personal history of self-harm; Z91.19 Patient's noncompliance with other medical treatment and regimen
CPT/HCPCS: 36415; 80053; 85027; 86593; J0735

== ENCOUNTER 2019-01-03 13:41 | Emergency (ER) | payer OTHER ==
[2019-01-03 13:49] VITALS: BP 116/74; PULSE 76; TEMP 98.3; BMI 23.7
[2019-01-03] MEDS ORDERED: DIPHTH,PERTUSS(ACELL),TET 0.5 ML DISP.SYRIN IM ONE ×2 (14:26→14:31)
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
== END 2019-01-03 15:14 | disposition short-term general hospital (02) ==
LOC: JERFT 13:41
PROC: 3E0234Z Introduction of Serum, Toxoid and Vaccine into Muscle, Percutaneous Approach (ICD-10-PCS; principal; 2019-01-03)
DX: S61.254A Open bite of right ring finger without damage to nail, initial encounter (principal); S61.214A Laceration without foreign body of right ring finger without damage to nail, initial encounter; Y04.1XXA Assault by human bite, initial encounter; Y93.89 Activity, other specified; Y92.238 Other place in hospital as the place of occurrence of the external cause; Y99.8 Other external cause status; F11.20 Opioid dependence, uncomplicated; F13.20 Sedative, hypnotic or anxiolytic dependence, uncomplicated; F14.20 Cocaine dependence, uncomplicated; F12.20 Cannabis dependence, uncomplicated; F17.210 Nicotine dependence, cigarettes, uncomplicated; B18.2 Chronic viral hepatitis C
CPT/HCPCS: 73140-TC-RT-FY; 90471; 90715; 99281-25

== ENCOUNTER 2019-02-24 08:10 | Inpatient (IN) | payer OTHER ==
[2019-02-24 08:48] VITALS: BMI 22.1
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
[2019-02-24] MEDS ORDERED: MAGNESIUM CITRATE 300 ML BOTTLE PO PRN (09:29)
[2019-02-24] MEDS ORDERED: MELATONIN 5 MG TABLETS PO PRN (09:29)
[2019-02-24] MEDS ORDERED: METHOCARBAMOL 500 MG TABLET PO PRN (09:29)
[2019-02-24] MEDS ORDERED: MAGNESIUM HYDROX 2400MG/30ML ORAL SUSPENSION 30 ML CUP PO PRN (09:29)
[2019-02-24] MEDS ORDERED: hydrOXYzine PAMOATE 25 MG CAPSULE (FP) PO PRN (09:29)
[2019-02-24] MEDS ORDERED: NICOTINE POLACRILEX 2 MG GUM BUC PRN (09:29)
[2019-02-24] MEDS ORDERED: MENTHOL/PHENOL 1 EACH UD MM PRN (09:29)
[2019-02-24] MEDS ORDERED: ACETAMINOPHEN 325 MG TABLET (FP) PO PRN ×2 (09:29)
[2019-02-24] MEDS ORDERED: BISMUTH SUBSALICYLATE 262 MG/15 ML BTL PO PRN (09:29)
[2019-02-24] MEDS ORDERED: IBUPROFEN 400 MG TABLET (FP) PO PRN (09:29)
[2019-02-24] MEDS ORDERED: cloNIDine HCL 0.1 MG TABLET PO PRN (09:29)
[2019-02-24] MEDS ORDERED: diazePAM 5 MG TABLET PO PRN (09:32)
[2019-02-24] MEDS ORDERED: METHADONE HCL 10 MG TABLET (FOR DETOX USE ONLY) PO ONE ×2 (09:32→23:00)
[2019-02-24] MEDS: PRENATAL VITAMINS W/ FOLIC ACID TABLET (FP) PO SCH (10:33)
[2019-02-24] MEDS: NICOTINE 21 MG/24 HOURS TOPICAL PATCH TD SCH (10:33)
[2019-02-24] MEDS: CEPHALEXIN MONOHYDRATE 500 MG CAPSULE (UD) PO SCH ×2 (14:57→22:36)
[2019-02-24] MEDS: MAG HYDROX/AL HYDROX/SIMETH 30 ML UNIT-DOSE CUP PO PRN (14:57)
[2019-02-24] MEDS: diazePAM 5 MG TABLET PO SCH ×2 (14:57→22:37)
[2019-02-24] MEDS ORDERED: THIAMINE HCL 100 MG TABLET (FP) PO SCH (22:00)
[2019-02-25] MEDS: CEPHALEXIN MONOHYDRATE 500 MG CAPSULE (UD) PO SCH ×2 (06:07→14:10)
[2019-02-25] MEDS: diazePAM 5 MG TABLET PO SCH (06:07)
--- NOTE | 2019-02-25 09:33 | PN ---
[facility] Progress Note Note: Patient does not want to be seen
[2019-02-25] MEDS ORDERED: METHADONE HCL 10 MG TABLET (FOR DETOX USE ONLY) PO ONE (10:00)
[2019-02-25] MEDS: PRENATAL VITAMINS W/ FOLIC ACID TABLET (FP) PO SCH (10:11)
[2019-02-25] MEDS: NICOTINE 21 MG/24 HOURS TOPICAL PATCH TD SCH (10:12)
--- NOTE | 2019-02-25 10:48 | PN ---
[facility] CIWA - CIWA Score Nausea/Vomitin-No Nausea/No Vomiting Muscle Tremors: 3 Anxiety: 3 Agitation: 3 Paroxysmal Sweats: 3 Orientation: 0-Oriented Tacttile Disturbances: 0-None Auditory Disturbances: 0-None Visual Disturbances: 0-None Headache: 0-None Present CIWA-Ar Total Score: 12 [facility] COWS - Scale Resting Pulse: 1= [place] 81-100 Sweatin=Flushed/Facial Moisture Restless Observation: 1= Difficult to Sit Still Pupil Size: 0= Normal to Room Light Bone or Joint Aches: 2= Severe Diffuse Aches Runny Nose/ Eye Tearin= None GI Upset > 30mins: 2= Nausea/Diarrhea Tremor Observation of Outstretched Hands: 2= Slight Tremor Visible Yawning Observation: 2= >3x During Session Anxiety or Irritability: 2=Irritable/Anxious Goose Flesh Skin: 0=Smooth Skin COWS Score: 14 S Progress Note (SOAP) Subjective: sweats shakes interrupted sleep body aches edgy Objective: 02/25/19 10:48 Vital Signs Temperature 98.3 F 02/25/19 09:27 Pulse Rate 88 02/25/19 09:27 Respiratory Rate 18 02/25/19 09:27 Blood Pressure 108/74 02/25/19 09:27 O2 Sat by Pulse Oximetry (%) labs pending aaox3 ambulating no acute distress Assessment: 02/25/19 10:48 withdrawal sx Plan: continue detox increase fluids
[2019-02-25] MEDS: MAG HYDROX/AL HYDROX/SIMETH 30 ML UNIT-DOSE CUP PO PRN (11:58)
[2019-02-25 13:03] LABS: ALBUMIN 3.5 g/dl (3.4-5.0); ALK PHOS 72 U/L (45-117); ANION GAP 6 MMOL/L (8-16); BILIRUBIN,TOTAL 0.3 mg/dL (0.2-1); BLOOD UREA NITROGEN 15 mg/dL (7-18); CALCIUM 8.8 mg/dL (8.5-10.1); CHLORIDE 109 mmol/L (98-107); CO2 27 mmol/L (21-32); CREATININE 0.9 mg/dL (0.55-1.3); GLUCOSE,RANDOM 70 mg/dL (74-106); POTASSIUM 4.3 mmol/L (3.5-5.1); SGOT/AST 27 U/L (15-37); SGPT/ALT 31 U/L (13-61); SODIUM 142 mmol/L (136-145); TOT PROT 6.5 g/dl (6.4-8.2)
[2019-02-25 13:16] VITALS: BP 138/85; PULSE 77; TEMP 97.5
[2019-02-25 13:34] LABS: HEMATOCRIT 37.8 % (35.4-49); HEMOGLOBIN 12.4 GM/dL (11.7-16.9); MCH 28.9 pg (25.7-33.7); MCHC 32.9 g/dl (32.0-35.9); MEAN CELL VOLUME 87.8 fl (80-96); MEAN PLT VOLUME 8.1 fl (7.5-11.1); PLATELET COUNT 212 K/MM3 (134-434); RBC 4.31 M/mm3 (4.00-5.60); RDW 14.2 % (11.9-15.9); WHITE BLOOD COUNT 2.3 K/mm3 (4.0-10.0)
[2019-02-25] MEDS ORDERED: diazePAM 5 MG TABLET PO SCH (14:00)
--- NOTE | 2019-02-25 14:57 | PN ---
S Progress Note Note: pt states this is not the place for him and rather leave. Pt refused to speak to any staff members for any referral or advise. Pt signed out AMA and security escorted pt off the unit.
--- NOTE | 2019-02-25 14:59 | DS ---
[facility] Detox Discharge Summary Admission Date: 02/24/19 - History Present History: Alcohol Dependence, Opioid Dependence - Physical Exam Results Vital Signs: Vital Signs Temperature 97.5 F L 02/25/19 13:15 Pulse Rate 77 02/25/19 13:15 Respiratory Rate 20 02/25/19 13:15 Blood Pressure 138/85 02/25/19 13:15 O2 Sat by Pulse Oximetry (%) - Treatment Hospital Course: Discharged Condition Good - Medication Discharge Medications: Ambulatory Orders Mirtazapine 7.5 mg PO HS #30 tablet 01/03/19 Naloxone HCl [Narcan] 4 mg NS ASDIR PRN #1 spray 01/05/19 - Diagnosis (1) Dehydration Current Visit: Yes Status: Acute (2) Depression Current Visit: Yes Status: Acute (3) Alcohol dependence with uncomplicated withdrawal Current Visit: No Status: Acute (4) Nicotine dependence Current Visit: Yes Status: Chronic Qualifiers: Nicotine product type: cigarettes Substance use status: uncomplicated Qualified Code(s): F17.210 - Nicotine dependence, cigarettes, uncomplicated (5) Opioid dependence with withdrawal Current Visit: Yes Status: Chronic (6) Sedative, hypnotic or anxiolytic dependence with withdrawal, uncomplicated Current Visit: Yes Status: Chronic (7) Weight loss Current Visit: No Status: Acute (8) Cannabis dependence, uncomplicated Current Visit: Yes Status: Chronic (9) Cocaine dependence, uncomplicated Current Visit: Yes Status: Chronic (10) Hep C w/o coma, chronic Current Visit: Yes Status: Chronic (11) IV drug user Current Visit: No Status: Chronic (12) Insomnia Current Visit: No Status: Chronic Qualifiers: Insomnia type: unspecified Qualified Code(s): G47.00 - Insomnia, unspecified (13) Insomnia secondary to depression with anxiety Current Visit: No Status: Chronic (14) Pityriasis versicolor Current Visit: No Status: Chronic (15) Bipolar disorder Current Visit: No Status: Suspected Qualifiers: Active/Remission status: in partial remission Most recent bipolar episode type: mixed Qualified Code(s): F31.77 - Bipolar disorder, in partial remission , most recent episode mixed (16) Depression Current Visit: No Status: Suspected Qualifiers: Depression Type: dysthymia Qualified Code(s): F34.1 - Dysthymic disorder (17) Drug-induced mood disorder Current Visit: No Status: Suspected - AMA Did Patient Leave Against Medical Advice: Yes
[2019-02-26] MEDS ORDERED: diazePAM 5 MG TABLET PO ONE (06:00)
[2019-02-26] MEDS ORDERED: METHADONE HCL 10 MG TABLET (FOR DETOX USE ONLY) PO ONE (10:00)
[2019-02-27] MEDS ORDERED: METHADONE HCL 10 MG TABLET (FOR DETOX USE ONLY) PO ONE (10:00)
[2019-02-28] MEDS ORDERED: METHADONE HCL 5 MG TABLET (FOR DETOX USE ONLY) PO ONE (06:00)
== END 2019-02-25 14:25 | disposition left against medical advice (07) | DRG 770 ==
LOC: YASAS 08:10 → Y6N 09:40
PROVIDERS: ADMIT Surgery; ATTEND Surgery
DX: F11.23 Opioid dependence with withdrawal (principal); F10.230 Alcohol dependence with withdrawal, uncomplicated; F13.20 Sedative, hypnotic or anxiolytic dependence, uncomplicated; F14.20 Cocaine dependence, uncomplicated; F12.20 Cannabis dependence, uncomplicated; F34.1 Dysthymic disorder; F51.05 Insomnia due to other mental disorder; F19.24 Other psychoactive substance dependence with psychoactive substance-induced mood disorder; F31.77 Bipolar disorder, in partial remission, most recent episode mixed; E86.0 Dehydration; B18.2 Chronic viral hepatitis C; R63.4 Abnormal weight loss; G47.00 Insomnia, unspecified; Z68.22 Body mass index [BMI] 22.0-22.9, adult; B36.0 Pityriasis versicolor; Z91.5 Personal history of self-harm
CPT/HCPCS: 36415; 80053; 85027; 86593; 87389

== ENCOUNTER 2019-04-29 08:52 | Inpatient (IN) | payer OTHER ==
[2019-04-29 10:18] VITALS: BMI 22.4
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
[2019-04-29] MEDS ORDERED: P-EPHED 60MG/TRIPROLIDI 2.5MG TABLET PO PRN (11:14)
[2019-04-29] MEDS ORDERED: MAGNESIUM HYDROX 2400MG/30ML ORAL SUSPENSION 30 ML CUP PO PRN (11:14)
[2019-04-29] MEDS ORDERED: MAG HYDROX/AL HYDROX/SIMETH 30 ML UNIT-DOSE CUP PO PRN (11:14)
[2019-04-29] MEDS ORDERED: LOPERAMIDE HCL 2 MG CAPSULE PO PRN (11:14)
[2019-04-29] MEDS ORDERED: MAGNESIUM CITRATE 300 ML BOTTLE PO PRN (11:14)
[2019-04-29] MEDS ORDERED: MENTHOL/PHENOL 1 EACH UD MM PRN (11:14)
[2019-04-29] MEDS ORDERED: guaiFENesin 200 MG/10 ML 10 ML UNIT-DOSE CUPS PO PRN (11:14)
[2019-04-29] MEDS: NICOTINE 21 MG/24 HOURS TOPICAL PATCH TD SCH (13:51)
[2019-04-29 15:12] LABS: HEMATOCRIT 43.2 % (35.4-49); HEMOGLOBIN 14.5 GM/dL (11.7-16.9); MCH 29.3 pg (25.7-33.7); MCHC 33.5 g/dl (32.0-35.9); MEAN CELL VOLUME 87.6 fl (80-96); MEAN PLT VOLUME 7.6 fl (7.5-11.1); PLATELET COUNT 278 K/MM3 (134-434); RBC 4.93 M/mm3 (4.00-5.60); RDW 14.1 % (11.9-15.9); WHITE BLOOD COUNT 5.6 K/mm3 (4.0-10.0)
[2019-04-29 15:37] LABS: ALBUMIN 4.5 g/dl (3.4-5.0); BILIRUBIN,TOTAL 1.1 mg/dL (0.2-1); BLOOD UREA NITROGEN 16.7 mg/dL (7-18); CALCIUM 9.5 mg/dL (8.5-10.1); CREATININE 1.1 mg/dL (0.55-1.3); POTASSIUM 4.8 mmol/L (3.5-5.1); TOT PROT 8.5 g/dl (6.4-8.2)
[2019-04-29 19:32] LABS: URINE APPEARANCE TURBID; URINE BILIRUBIN 1+ (NEGATIVE); URINE COLOR DK YELLOW; URINE GLUCOSE (UA) NEGATIVE (NEGATIVE); URINE KETONE TRACE (NEGATIVE); URINE LEUK ESTERASE NEGATIVE (NEGATIVE); URINE NITRITE NEGATIVE (NEGATIVE); URINE PROTEIN NEGATIVE (NEGATIVE)
[2019-04-29] MEDS: THIAMINE HCL 100 MG TABLET (FP) PO SCH (21:07)
[2019-04-29] MEDS: MELATONIN 5 MG TABLETS PO PRN (21:08)
[2019-04-30] MEDS: METHADONE HCL 40 MG DISPERSABLE TABLET PO SCH (06:04)
[2019-04-30] MEDS: PRENATAL VITAMINS W/ FOLIC ACID TABLET (FP) PO SCH (10:24)
[2019-04-30] MEDS: NICOTINE 21 MG/24 HOURS TOPICAL PATCH TD SCH (10:24)
[2019-04-30] MEDS: hydrOXYzine PAMOATE 50 MG CAPSULE (FP) PO PRN (15:51)
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
[2019-04-30] MEDS: THIAMINE HCL 100 MG TABLET (FP) PO SCH (21:41)
[2019-04-30] MEDS: MELATONIN 5 MG TABLETS PO PRN (21:42)
[2019-04-30] MEDS: MIRTAZAPINE 15 MG TABLET (FP) PO SCH (21:42)
[2019-05-01] MEDS: METHADONE HCL 40 MG DISPERSABLE TABLET PO SCH (06:07)
[2019-05-01] MEDS: FLUoxetine HCL 20 MG CAPSULE (FP) PO SCH (09:50)
[2019-05-01] MEDS: PRENATAL VITAMINS W/ FOLIC ACID TABLET (FP) PO SCH (09:50)
[2019-05-01] MEDS: NICOTINE 21 MG/24 HOURS TOPICAL PATCH TD SCH (09:50)
[2019-05-01] MEDS: THIAMINE HCL 100 MG TABLET (FP) PO SCH (21:15)
[2019-05-01] MEDS: MIRTAZAPINE 15 MG TABLET (FP) PO SCH (21:16)
[2019-05-02] MEDS: METHADONE HCL 40 MG DISPERSABLE TABLET PO SCH (05:56)
[2019-05-02] MEDS: PRENATAL VITAMINS W/ FOLIC ACID TABLET (FP) PO SCH (09:57)
[2019-05-02] MEDS: NICOTINE 21 MG/24 HOURS TOPICAL PATCH TD SCH (09:57)
[2019-05-02] MEDS: FLUoxetine HCL 20 MG CAPSULE (FP) PO SCH (09:57)
[2019-05-02] MEDS: hydrOXYzine PAMOATE 50 MG CAPSULE (FP) PO PRN (09:58)
[2019-05-02] MEDS: THIAMINE HCL 100 MG TABLET (FP) PO SCH (21:12)
[2019-05-02] MEDS: MIRTAZAPINE 15 MG TABLET (FP) PO SCH (21:12)
[2019-05-03] MEDS: METHADONE HCL 40 MG DISPERSABLE TABLET PO SCH (06:16)
[2019-05-03] MEDS: FLUoxetine HCL 20 MG CAPSULE (FP) PO SCH (09:30)
[2019-05-03] MEDS: NICOTINE 21 MG/24 HOURS TOPICAL PATCH TD SCH (09:30)
[2019-05-03] MEDS: PRENATAL VITAMINS W/ FOLIC ACID TABLET (FP) PO SCH (09:30)
[2019-05-03] MEDS: hydrOXYzine PAMOATE 50 MG CAPSULE (FP) PO PRN (09:31)
[2019-05-03] MEDS: THIAMINE HCL 100 MG TABLET (FP) PO SCH (21:50)
[2019-05-03] MEDS: ACETAMINOPHEN 325 MG TABLET (FP) PO PRN (21:50)
[2019-05-03] MEDS: MIRTAZAPINE 15 MG TABLET (FP) PO SCH (21:51)
[2019-05-04] MEDS: METHADONE HCL 40 MG DISPERSABLE TABLET PO SCH (07:10)
[2019-05-04] MEDS: PRENATAL VITAMINS W/ FOLIC ACID TABLET (FP) PO SCH (10:04)
[2019-05-04] MEDS: FLUoxetine HCL 20 MG CAPSULE (FP) PO SCH (10:04)
[2019-05-04] MEDS: NICOTINE 21 MG/24 HOURS TOPICAL PATCH TD SCH (10:04)
[2019-05-04] MEDS: hydrOXYzine PAMOATE 50 MG CAPSULE (FP) PO PRN (10:04)
--- NOTE | 2019-05-04 11:11 | PN ---
[facility] Progress Note Note: PATIENT PRESENTS WITH C/O LETHARGY AND SEDATION SIDE EFFECT OF METHADONE. PATIENT CURRENTLY IN [facility] MTD PROGRAM AT ON 80MG OF METHADONE. PATIENT STATES CURRENT DOSE IS TOO STRONG AT THIS TIME AND MAKING HIM FEEL SLEEPY. Vital Signs Temperature 97.3 F L 05/04/19 07:21 Pulse Rate 52 L 05/04/19 07:21 Respiratory Rate 18 05/04/19 07:21 Blood Pressure 133/89 05/04/19 07:21 O2 Sat by Pulse Oximetry (%) Laboratory Tests 04/29/19 04/29/19 04/29/19 11:25 11:25 11:25 WBC 5.6 RBC 4.93 Hgb 14.5 Hct 43.2 MCV 87.6 MCH 29.3 MCHC 33.5 RDW 14.1 Plt Count 278 MPV 7.6 Sodium 138 Potassium 4.8 Chloride 102 Carbon Dioxide 28 Anion Gap 7 L BUN 16.7 Creatinine 1.1 Est GFR (CKD-EPI)AfAm 96.81 Est GFR (CKD-EPI)NonAf 83.53 Random Glucose 88 Calcium 9.5 Total Bilirubin 1.1 H AST 40 H ALT 39 Alkaline Phosphatase 85 Total Protein 8.5 H Albumin 4.5 Urine Color Urine Appearance Urine pH Ur Specific [place] Urine Protein Urine Glucose (UA) Urine Ketones Urine Blood Urine Nitrite Urine Bilirubin Urine Urobilinogen Ur Leukocyte Esterase RPR Titer Nonreactive HIV 1&2 Antibody Screen HIV P24 Antigen 04/29/19 04/29/19 11:30 15:45 WBC RBC Hgb Hct MCV MCH MCHC RDW Plt Count MPV Sodium Potassium Chloride Carbon Dioxide Anion Gap BUN Creatinine Est GFR (CKD-EPI)AfAm Est GFR (CKD-EPI)NonAf Random Glucose Calcium Total Bilirubin AST ALT Alkaline Phosphatase Total Protein Albumin Urine Color Dk yellow Urine Appearance Turbid Urine pH 5.0 Ur Specific [place] 1.034 Urine Protein Negative Urine Glucose (UA) Negative Urine Ketones Trace H Urine Blood Negative Urine Nitrite Negative Urine Bilirubin 1+ H Urine Urobilinogen 1.0 Ur Leukocyte Esterase Negative RPR Titer HIV 1&2 Antibody Screen Negative HIV P24 Antigen Negative PE: ALERT AND ORIENTED X 3 NO LETHARGY, PROFOUND SEDATION NOTED AT THIS TIME SKIN WARM AND DRY +PERRLA, PUPILS CONSTRICTED EXT FULL ROM, AMB AD STACY A/P: OPIOD DEPENDENCE METHADONE MAT DISCUSSED PATIENT'S SYMPTOMS WITH DR. JOSEPH [facility] MD AGREED TO DECREASE METHADONE TO 70MG STARTING TOMORROW AND TO CONTACT MD IF SYMPTOMS PERSIST WILL ORDER MTD 70MG DAILY STARTING IN AM MONITOR CLINICALLY
[2019-05-04] MEDS: ACETAMINOPHEN 325 MG TABLET (FP) PO PRN (14:22)
[2019-05-04] MEDS: THIAMINE HCL 100 MG TABLET (FP) PO SCH (21:09)
[2019-05-04] MEDS: MIRTAZAPINE 15 MG TABLET (FP) PO SCH (21:10)
[2019-05-05] MEDS ORDERED: METHADONE HCL 40 MG DISPERSABLE TABLET ONE (05:34)
[2019-05-05] MEDS ORDERED: METHADONE HCL 10 MG TABLET ONE (05:34)
[2019-05-05] MEDS ORDERED: METHADONE HCL 10 MG TABLET PO SCH (06:00)
[2019-05-05] MEDS: METHADONE 40 MG, METHADONE 30 MG PO SCH (06:22)
[2019-05-05] MEDS: FLUoxetine HCL 20 MG CAPSULE (FP) PO SCH (10:18)
[2019-05-05] MEDS: PRENATAL VITAMINS W/ FOLIC ACID TABLET (FP) PO SCH (10:18)
[2019-05-05] MEDS: NICOTINE 21 MG/24 HOURS TOPICAL PATCH TD SCH (10:18)
[2019-05-05] MEDS: ACETAMINOPHEN 325 MG TABLET (FP) PO PRN (10:19)
[2019-05-05] MEDS: MELATONIN 5 MG TABLETS PO PRN (21:46)
[2019-05-05] MEDS: THIAMINE HCL 100 MG TABLET (FP) PO SCH (21:46)
[2019-05-05] MEDS: MIRTAZAPINE 15 MG TABLET (FP) PO SCH (21:46)
[2019-05-06] MEDS ORDERED: METHADONE HCL 10 MG TABLET ONE (05:25)
[2019-05-06] MEDS ORDERED: METHADONE HCL 40 MG DISPERSABLE TABLET ONE (05:25)
[2019-05-06] MEDS: METHADONE 40 MG, METHADONE 30 MG PO SCH (06:04)
[2019-05-06] MEDS: hydrOXYzine PAMOATE 50 MG CAPSULE (FP) PO PRN (09:50)
[2019-05-06] MEDS: NICOTINE 21 MG/24 HOURS TOPICAL PATCH TD SCH (09:51)
[2019-05-06] MEDS: FLUoxetine HCL 20 MG CAPSULE (FP) PO SCH (09:51)
[2019-05-06] MEDS: PRENATAL VITAMINS W/ FOLIC ACID TABLET (FP) PO SCH (09:51)
[2019-05-06] MEDS: MIRTAZAPINE 15 MG TABLET (FP) PO SCH (21:14)
[2019-05-06] MEDS: THIAMINE HCL 100 MG TABLET (FP) PO SCH (21:14)
[2019-05-07] MEDS ORDERED: METHADONE HCL 40 MG DISPERSABLE TABLET ONE (05:26)
[2019-05-07] MEDS ORDERED: METHADONE HCL 10 MG TABLET ONE (05:26)
[2019-05-07] MEDS: METHADONE 40 MG, METHADONE 30 MG PO SCH (06:10)
[2019-05-07] MEDS: PRENATAL VITAMINS W/ FOLIC ACID TABLET (FP) PO SCH (09:46)
[2019-05-07] MEDS: FLUoxetine HCL 20 MG CAPSULE (FP) PO SCH (09:46)
[2019-05-07] MEDS: NICOTINE 21 MG/24 HOURS TOPICAL PATCH TD SCH (09:46)
[2019-05-07] MEDS: ACETAMINOPHEN 325 MG TABLET (FP) PO PRN (09:47)
[2019-05-07] MEDS: THIAMINE HCL 100 MG TABLET (FP) PO SCH (21:07)
[2019-05-07] MEDS: MIRTAZAPINE 15 MG TABLET (FP) PO SCH (21:07)
[2019-05-08] MEDS ORDERED: METHADONE HCL 10 MG TABLET ONE (05:29)
[2019-05-08] MEDS ORDERED: METHADONE HCL 40 MG DISPERSABLE TABLET ONE (05:29)
[2019-05-08] MEDS: METHADONE 40 MG, METHADONE 30 MG PO SCH (06:20)
[2019-05-08] MEDS: FLUoxetine HCL 20 MG CAPSULE (FP) PO SCH (09:39)
[2019-05-08] MEDS: hydrOXYzine PAMOATE 50 MG CAPSULE (FP) PO PRN (09:39)
[2019-05-08] MEDS: PRENATAL VITAMINS W/ FOLIC ACID TABLET (FP) PO SCH (09:39)
[2019-05-08] MEDS: NICOTINE 21 MG/24 HOURS TOPICAL PATCH TD SCH (09:39)
--- NOTE | 2019-05-08 12:31 | PN ---
[facility] Progress Note Note: Patient reports feeling somewhat anxious and slleeping poorly despite taking Prozac 20 mg/day, Remeron 7.5 mg/hs and Vistaril 50 mg po Q4 hrs prn. Discussed with patient of raising Remeron dosage to 15 mg po HS and he agreed with plan
[2019-05-08] MEDS: THIAMINE HCL 100 MG TABLET (FP) PO SCH (21:46)
[2019-05-09] MEDS: METHADONE 40 MG, METHADONE 30 MG PO SCH (06:24)
[2019-05-09] MEDS ORDERED: METHADONE HCL 10 MG TABLET ONE (06:24)
[2019-05-09] MEDS ORDERED: METHADONE HCL 40 MG DISPERSABLE TABLET ONE (06:24)
[2019-05-09] MEDS: PRENATAL VITAMINS W/ FOLIC ACID TABLET (FP) PO SCH (09:20)
[2019-05-09] MEDS: hydrOXYzine PAMOATE 50 MG CAPSULE (FP) PO PRN (09:20)
[2019-05-09] MEDS: NICOTINE 21 MG/24 HOURS TOPICAL PATCH TD SCH (09:20)
[2019-05-09] MEDS: FLUoxetine HCL 20 MG CAPSULE (FP) PO SCH (09:20)
[2019-05-09] MEDS ORDERED: PT OWN MED DRAWER 7, Y5N ONE (15:24)
--- NOTE | 2019-05-09 21:31 | PN ---
[facility] Progress Note Note: Psychiatry Asked to enter order for mirtazapine. Chart reviewed. Notes by Dr Lai + NIKUNJ Cross : Appreciated. Medication is confirmed in treatment plan. Patient is requesting his HS dose of remeron. Intervention : Remeron 7.5 mg po hs. Ordered. Dr Lai to follow in AM.
[2019-05-09] MEDS ORDERED: MIRTAZAPINE 15 MG TABLET (FP) PO SCH (22:00)
[2019-05-09] MEDS: THIAMINE HCL 100 MG TABLET (FP) PO SCH (22:15)
[2019-05-09] MEDS: IBUPROFEN 400 MG TABLET (FP) PO PRN (22:16)
[2019-05-10] MEDS ORDERED: METHADONE HCL 10 MG TABLET ONE (05:51)
[2019-05-10] MEDS ORDERED: METHADONE HCL 40 MG DISPERSABLE TABLET ONE (05:51)
[2019-05-10] MEDS: METHADONE 40 MG, METHADONE 30 MG PO SCH (06:49)
[2019-05-10] MEDS: FLUoxetine HCL 20 MG CAPSULE (FP) PO SCH (10:08)
[2019-05-10] MEDS: hydrOXYzine PAMOATE 50 MG CAPSULE (FP) PO PRN (10:09)
[2019-05-10] MEDS: NICOTINE 21 MG/24 HOURS TOPICAL PATCH TD SCH (10:09)
[2019-05-10] MEDS: PRENATAL VITAMINS W/ FOLIC ACID TABLET (FP) PO SCH (10:09)
[2019-05-10] MEDS: MIRTAZAPINE 15 MG TABLET (FP) PO SCH (22:18)
[2019-05-10] MEDS: THIAMINE HCL 100 MG TABLET (FP) PO SCH (22:18)
[2019-05-11] MEDS ORDERED: METHADONE HCL 40 MG DISPERSABLE TABLET ONE (05:36)
[2019-05-11] MEDS ORDERED: METHADONE HCL 10 MG TABLET ONE (05:36)
[2019-05-11] MEDS: METHADONE 40 MG, METHADONE 30 MG PO SCH (05:48)
[2019-05-11] MEDS: PRENATAL VITAMINS W/ FOLIC ACID TABLET (FP) PO SCH (10:11)
[2019-05-11] MEDS: NICOTINE 21 MG/24 HOURS TOPICAL PATCH TD SCH (10:12)
[2019-05-11] MEDS: FLUoxetine HCL 20 MG CAPSULE (FP) PO SCH (10:12)
[2019-05-11] MEDS: IBUPROFEN 400 MG TABLET (FP) PO PRN (19:33)
[2019-05-11] MEDS: THIAMINE HCL 100 MG TABLET (FP) PO SCH (21:13)
[2019-05-11] MEDS: MIRTAZAPINE 15 MG TABLET (FP) PO SCH (21:13)
[2019-05-12 06:34] VITALS: BP 129/77; PULSE 57; TEMP 98.3
[2019-05-12] MEDS: METHADONE 40 MG, METHADONE 30 MG PO SCH (07:07)
--- NOTE | 2019-05-12 08:21 | PN ---
[facility] Progress Note (SOAP) Subjective: Patient to be discharged today Objective: A=O x3, no neurological deficits noted; heart rate regular, lungs clear, abd soft, non-tender, non-distended, +BS 05/12/19 08:20 CBC, BMP 04/29/19 11:25 04/29/19 11:25 Vital Signs (72 hours) 05/10/19 05/10/19 05/11/19 03:30 06:43 00:30 Temperature 99.1 F Pulse Rate 64 Respiratory 18 18 18 Rate Blood Pressure 125/75 05/11/19 05/11/19 05/12/19 03:30 06:44 00:30 Temperature 98.2 F Pulse Rate 60 Respiratory 18 18 18 Rate Blood Pressure 123/79 05/12/19 05/12/19 03:30 06:33 Temperature 98.3 F Pulse Rate 57 L Respiratory 18 18 Rate Blood Pressure 129/77 05/12/19 09:06 Assessment: Medically stable for discharge Discharge Dx: ETOH dependence Cocaine dependence Cannabis dependence MMTP 05/12/19 09:05 05/12/19 09:06 Plan: Patient medically stable for discharge. Will attend [facility] for aftercare and goes to the [facility] for medical care; provider is Radha Marx. Prescriptions for psychiatric medications will be transmitted by psychiatrist.
== END 2019-05-12 09:04 | disposition home or self-care (01) | DRG 772 ==
LOC: YASAS 08:52 → Y3W 11:04
PROVIDERS: ADMIT Neuromusculoskeletal Medicine & OMM; ATTEND Neuromusculoskeletal Medicine & OMM
PROC: HZ42ZZZ Group Counseling for Substance Abuse Treatment, Cognitive-Behavioral (ICD-10-PCS; principal; 2019-04-29)
DX: F10.20 Alcohol dependence, uncomplicated (principal); F11.20 Opioid dependence, uncomplicated; F14.20 Cocaine dependence, uncomplicated; F12.20 Cannabis dependence, uncomplicated; F17.210 Nicotine dependence, cigarettes, uncomplicated; F19.24 Other psychoactive substance dependence with psychoactive substance-induced mood disorder; F19.282 Other psychoactive substance dependence with psychoactive substance-induced sleep disorder; F31.77 Bipolar disorder, in partial remission, most recent episode mixed; F34.1 Dysthymic disorder; B18.2 Chronic viral hepatitis C; E86.0 Dehydration; Z91.14 Patient's other noncompliance with medication regimen; Z91.013 Allergy to seafood; Z91.5 Personal history of self-harm
CPT/HCPCS: 36415; 80053; 81003; 85027; 86593; 87389

== ENCOUNTER 2019-10-13 09:54 | Inpatient (IN) | payer OTHER ==
[2019-10-13 10:27] VITALS: BMI 23.5
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
--- NOTE | 2019-10-13 13:54 | PN ---
"Teaching Attending Note Name of Resident: Kenya Garcia ATTENDING PHYSICIAN STATEMENT I saw and evaluated the patient. I reviewed the resident's note and discussed the case with the resident. I agree with the resident's findings and plan as documented. SUBJECTIVE: pt here requesting rehab from cannabis use , reports 2-3 bags/ day x many years . On MMTP 70 mg daily , previously @ [facility] on 40 mg Methadone daily . legal : pending court for shoplifting , pending family court re : custody , has 7-mo old son currently in the care of maternal aunt . OBJECTIVE: wnwd Vital Signs - 24 hr 10/13/19 10:16 Temperature 98.6 F Pulse Rate 75 Respiratory 18 Rate Blood Pressure 116/76 This report was requested by: Radha Brown | Reference #: [id number] Others' Prescriptions Patient Name: Isabelle Anton Date: 1980 Address: [address] [place] [address] [place] [address] Sex: Male Rx Written Rx Dispensed Drug Quantity Days Supply Prescriber Name 07/27/2019 07/27/2019 endocet 10-325 mg tablet 21 7 Azar Nelson ASSESSMENT AND PLAN: Cannabis use disorder - rehab Opioid dependence on agonist therapy"
[2019-10-13] MEDS ORDERED: ACETAMINOPHEN 325 MG TABLET (FP) PO PRN (14:01)
[2019-10-13] MEDS ORDERED: MAGNESIUM CITRATE 300 ML BOTTLE PO PRN (14:01)
[2019-10-13] MEDS ORDERED: LOPERAMIDE HCL 2 MG CAPSULE PO PRN (14:01)
[2019-10-13] MEDS ORDERED: P-EPHED 60MG/TRIPROLIDI 2.5MG TABLET PO PRN (14:01)
[2019-10-13] MEDS ORDERED: NICOTINE POLACRILEX 2 MG GUM BUC PRN (14:01)
[2019-10-13] MEDS ORDERED: IBUPROFEN 400 MG TABLET (FP) PO PRN (14:01)
[2019-10-13] MEDS ORDERED: MENTHOL/PHENOL 1 EACH UD MM PRN (14:01)
[2019-10-13] MEDS ORDERED: guaiFENesin 200 MG/10 ML 10 ML UNIT-DOSE CUPS PO PRN (14:01)
[2019-10-13] MEDS ORDERED: MAG HYDROX/AL HYDROX/SIMETH 30 ML UNIT-DOSE CUP PO PRN (14:01)
[2019-10-13] MEDS ORDERED: MAGNESIUM HYDROX 2400MG/30ML ORAL SUSPENSION 30 ML CUP PO PRN (14:01)
[2019-10-13] MEDS ORDERED: ALBUTEROL SO4 8 GM HFA INHALER IH PRN (14:12)
[2019-10-13] MEDS ORDERED: ALBUTEROL SO4 0.083% IH SOL 2.5 MG/3 ML VIAL.NEB. NEB PRN (14:12)
[2019-10-13 18:16] LABS: HEMATOCRIT 41.3 % (35.4-49); HEMOGLOBIN 13.8 GM/dL (11.7-16.9); MCHC 33.3 g/dl (32.0-35.9); MEAN CELL VOLUME 87.1 fl (80-96); PLATELET COUNT 268 K/MM3 (134-434); RBC 4.74 M/mm3 (4.00-5.60); RDW 14.3 % (11.9-15.9); WHITE BLOOD COUNT 3.3 K/mm3 (4.0-10.0)
[2019-10-13 18:26] LABS: BILIRUBIN,TOTAL 0.5 mg/dL (0.2-1); BLOOD UREA NITROGEN 11.1 mg/dL (7-18); CALCIUM 8.7 mg/dL (8.5-10.1); CREATININE 0.9 mg/dL (0.55-1.3); POTASSIUM 4.5 mmol/L (3.5-5.1)
[2019-10-13] MEDS ORDERED: MELATONIN 5 MG TABLETS PO PRN (22:00)
[2019-10-13] MEDS: THIAMINE HCL 100 MG TABLET (FP) PO SCH (22:02)
[2019-10-14] MEDS ORDERED: METHADONE HCL 40 MG DISPERSABLE TABLET ONE (04:58)
[2019-10-14] MEDS ORDERED: METHADONE HCL 10 MG TABLET ONE (04:58)
[2019-10-14] MEDS ORDERED: METHADONE HCL 40 MG DISPERSABLE TABLET PO SCH (06:00)
[2019-10-14] MEDS: METHADONE 40 MG, METHADONE 30 MG PO SCH (06:14)
[2019-10-14 07:18] VITALS: TEMP 97.9
--- NOTE | 2019-10-14 07:55 | CONSULT ---
[facility] Psychiatric Consult - Data Date of interview: 10/14/19 Admission source: Self-referred Identifying data: Mr Anton is a 39 years old male, father of 4 children, unemployed receiving food stamp, domiciled living with family admitted on 10/13/19 to this facility for inpatient rehabilitation for alcohol, opioid, cocaine and cannabis Substance Abuse History: Reports history of alcohol, herroin, cocaine and marijuana use,. Refer to addiction counselor's summary for further information Medical History: Significant for bronchoal asthma, dyslipidemia and hepatitis C. Patient is on methadone 70 mg/day from [facility]. Smokes 10 cigarettes daily Psychiatric History: Patient came to the office for interview. As script writer started asking questions, he became irritable saying that :" I'm not here for alcohol and cocaine. I' m only here for joie and methadone." He got up and left office
[2019-10-14] MEDS: PRENATAL VITAMINS W/ FOLIC ACID TABLET (FP) PO SCH (11:01)
[2019-10-14] MEDS: NICOTINE 14 MG/24 HOURS TOPICAL PATCH TD SCH (11:01)
[2019-10-14] MEDS ORDERED: FLU VACCINE QUAD 60 MCG/0.5 ML (MDV 19-20) IM ONE (12:00)
[2019-10-14] MEDS: THIAMINE HCL 100 MG TABLET (FP) PO SCH (22:56)
[2019-10-15] MEDS ORDERED: METHADONE HCL 40 MG DISPERSABLE TABLET ONE (05:00)
[2019-10-15] MEDS ORDERED: METHADONE HCL 10 MG TABLET ONE (05:00)
[2019-10-15] MEDS: METHADONE 40 MG, METHADONE 30 MG PO SCH (06:02)
[2019-10-15 07:18] VITALS: BP 113/82; PULSE 60
[2019-10-15] MEDS: PRENATAL VITAMINS W/ FOLIC ACID TABLET (FP) PO SCH (10:42)
[2019-10-15] MEDS: NICOTINE 14 MG/24 HOURS TOPICAL PATCH TD SCH (10:42)
--- NOTE | 2019-10-15 11:27 | DS ---
[facility] Rehab Discharge Summary - [facility] Rehab Discharge Summary Admission Date: 10/13/19 Discharge Date: 10/15/19 - History Present History: Alcohol dependence, Cannabis dependence, Cocaine dependence, MMTP, Opioid dependence, Sedative dependence Additional Comments: Pt is a 39 y/o male with a hx of NILAY admitted to rehab from [facility] and on [facility] with Methadone 70 mg po daily. Nurse David informed this typewriter operator automatic that patient walked off the unit and with the security on 2nd floor office. Pt was seen and counselled against walking off the unit and to communicate needs in future and pt responded "I'm sorry". Pt declined to state reason for action and signed off AMA document. Pt states he has primary care with [facility] at [address] [place] [address]. Pertinent Past History: Hep c Pityriasis Vesicolor Mood disorder - Discharge Physical Exam Vital Signs: Vital Signs Temperature 97.9 F 10/15/19 07:17 Pulse Rate 60 10/15/19 07:17 Respiratory Rate 18 10/15/19 07:17 Blood Pressure 113/82 10/15/19 07:17 O2 Sat by Pulse Oximetry (%) Alert o x 3 nad oob ambulating with steady gait. Pertinent Admission Physical Exam Findings: Laboratory Tests 10/13/19 10/13/19 10/13/19 14:15 14:15 14:15 WBC 3.3 L RBC 4.74 Hgb 13.8 Hct 41.3 MCV 87.1 MCH 29.0 MCHC 33.3 RDW 14.3 Plt Count 268 MPV 8.0 Sodium 140 Potassium 4.5 Chloride 108 H Carbon Dioxide 27 Anion Gap 6 L BUN 11.1 Creatinine 0.9 Est GFR (CKD-EPI)AfAm 122.52 Est GFR (CKD-EPI)NonAf 105.71 Random Glucose 94 Calcium 8.7 Total Bilirubin 0.5 AST 25 ALT 34 Alkaline Phosphatase 70 Total Protein 7.0 Albumin 4.0 RPR Titer Nonreactive HIV 1&2 Antibody Screen HIV P24 Antigen 10/13/19 14:15 WBC RBC Hgb Hct MCV MCH MCHC RDW Plt Count MPV Sodium Potassium Chloride Carbon Dioxide Anion Gap BUN Creatinine Est GFR (CKD-EPI)AfAm Est GFR (CKD-EPI)NonAf Random Glucose Calcium Total Bilirubin AST ALT Alkaline Phosphatase Total Protein Albumin RPR Titer HIV 1&2 Antibody Screen Negative HIV P24 Antigen Negative - Treatment Discharge Condition: Discharge condition good Hospital Course: Pt walked off the unit Pt will go back to his [facility] MMTP for CD aftercare. - Medication Discharge Medications: Ambulatory Orders Methadone [Dolophine -] 70 mg PO DAILY 04/29/19 Cariprazine HCl [Vraylar] 3 mg PO DAILY 10/13/19 Mirtazapine [Remeron -] 30 mg PO HS 10/13/19 - Medication-Assisted Treatment (MAT) Medication-Assisted Treatment (MAT): No - Discharge Instructions Diet, activity, other medical instructions: Diet:Regular Activity: oob ad lid Other medical instructions:follow up with CD aftercare and primary care as indicated above. - Diagnosis (1) Heroin abuse Current Visit: Yes Status: Chronic (2) Cocaine dependence Current Visit: Yes Status: Chronic Qualifiers: Substance use status: uncomplicated Qualified Code(s): F14.20 - Cocaine dependence, uncomplicated (3) Cannabis dependence Current Visit: Yes Status: Chronic (4) Methadone maintenance therapy patient Current Visit: Yes Status: Chronic (5) Alcohol dependence Current Visit: Yes Status: Chronic Qualifiers: Substance use status: uncomplicated Qualified Code(s): F10.20 - Alcohol dependence, uncomplicated (6) Hep C w/o coma, chronic Current Visit: Yes Status: Chronic (7) IV drug user Current Visit: Yes Status: Chronic (8) Nicotine dependence Current Visit: Yes Status: Chronic Qualifiers: Nicotine product type: cigarettes Substance use status: uncomplicated Qualified Code(s): F17.210 - Nicotine dependence, cigarettes, uncomplicated (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 However, this typewriter operator automatic went to see pt in the security office where he was held to sign his discharge papers and collect his belongings.
== END 2019-10-15 11:15 | disposition left against medical advice (07) | DRG 770 ==
LOC: YASAS 09:54 → Y5N 14:29
PROVIDERS: ADMIT Neuromusculoskeletal Medicine & OMM; ATTEND Neuromusculoskeletal Medicine & OMM
PROC: HZ2ZZZZ Detoxification Services for Substance Abuse Treatment (ICD-10-PCS; principal; 2019-10-13)
DX: F10.20 Alcohol dependence, uncomplicated (principal); F11.20 Opioid dependence, uncomplicated; F13.20 Sedative, hypnotic or anxiolytic dependence, uncomplicated; F14.20 Cocaine dependence, uncomplicated; F12.20 Cannabis dependence, uncomplicated; F17.210 Nicotine dependence, cigarettes, uncomplicated; F39 Unspecified mood [affective] disorder; F31.9 Bipolar disorder, unspecified; F41.9 Anxiety disorder, unspecified; B36.0 Pityriasis versicolor; B18.2 Chronic viral hepatitis C; E78.5 Hyperlipidemia, unspecified; J45.998 Other asthma; Z91.5 Personal history of self-harm; Z91.013 Allergy to seafood
CPT/HCPCS: 36415; 80053; 85027; 86593; 87389

== ENCOUNTER 2020-09-22 18:11 | Inpatient (IN) | payer OTHER ==
[2020-09-22 18:30] VITALS: BMI 22.5
[2020-09-22 23:05] LABS: HEMATOCRIT 33.6 % (35.4-49); HEMOGLOBIN 11.1 GM/dL (11.7-16.9); MCH 28.7 pg (25.7-33.7); MCHC 33.1 g/dl (32.0-35.9); MEAN CELL VOLUME 86.6 fl (80-96); PLATELET COUNT 518 K/MM3 (134-434); RBC 3.88 M/mm3 (4.00-5.60); RDW 13.9 % (11.9-15.9); WHITE BLOOD COUNT 6.2 K/mm3 (4.0-10.0)
[2020-09-22 23:22] LABS: POTASSIUM 4.1 mmol/L (3.5-5.1)
[2020-09-22 23:24] LABS: CALCIUM 8.4 mg/dL (8.5-10.1)
[2020-09-22 23:25] LABS: ALBUMIN 3.2 g/dl (3.4-5.0); BLOOD UREA NITROGEN 16.7 mg/dL (7-18)
[2020-09-22 23:28] LABS: CREATININE 1.2 mg/dL (0.55-1.3)
[2020-09-22 23:29] LABS: BILIRUBIN,TOTAL 0.2 mg/dL (0.2-1)
[2020-09-22] MEDS ORDERED: ONDANSETRON 4 MG/2 ML VIAL IVPUSH ONE (23:34)
[2020-09-23 00:17] LABS: ERYTHROCYTE SEDIMENTATION RATE 34 mm/hr (0-10)
[2020-09-23 01:55] VITALS: BP 116/81; PULSE 57; TEMP 98.4
[2020-09-23] MEDS ORDERED: ACETAMINOPHEN 325 MG TABLET (FP) PO PRN (02:57)
[2020-09-23] MEDS ORDERED: PIPERACILLIN/TAZOB 3.375 GM 3.375 GM in DEXTROSE 5%-WATER - 50 ML IVPB SCH (03:15)
[2020-09-23] MEDS ORDERED: PIPERACILLIN/TAZOB 3.375 GM 3.375 GM/50 ML BAG IVPB ONE (03:58)
[2020-09-23] MEDS ORDERED: VANCOMYCIN 1 GRAM (PRE-DOCKED) 1,000 MG/250 ML BAG IVPB ONE (03:58)
[2020-09-23] MEDS ORDERED: VANCOMYCIN 1,000 MG in DEXTROSE 5%-WATER - 250 ML IVPB SCH (04:00)
[2020-09-23] MEDS ORDERED: METHADONE HCL 10 MG TABLET ONE (05:47)
[2020-09-23] MEDS ORDERED: METHADONE HCL 10 MG TABLET PO ONE ×2 (06:00→08:30)
[2020-09-23 07:13] LABS: POTASSIUM 4.5 mmol/L (3.5-5.1)
[2020-09-23 07:15] LABS: ALBUMIN 2.6 g/dl (3.4-5.0); BLOOD UREA NITROGEN 18.3 mg/dL (7-18); MAGNESIUM 2.1 mg/dL (1.8-2.4)
[2020-09-23 07:17] LABS: BASO % 0.6 % (0-2.0); EOS % 2.3 % (0-4.5); HEMATOCRIT 30.8 % (35.4-49); HEMOGLOBIN 10.1 GM/dL (11.7-16.9); LYMPH % 42.1 % (8-40); MCH 28.1 pg (25.7-33.7); MCHC 32.8 g/dl (32.0-35.9); MEAN CELL VOLUME 85.7 fl (80-96); MEAN PLT VOLUME 7.8 fl (7.5-11.1); PLATELET COUNT 430 K/MM3 (134-434); RDW 13.9 % (11.9-15.9); WHITE BLOOD COUNT 4.1 K/mm3 (4.0-10.0)
[2020-09-23 07:19] LABS: CREATININE 1.1 mg/dL (0.55-1.3)
[2020-09-23 07:20] LABS: BILIRUBIN,TOTAL 0.2 mg/dL (0.2-1); TOT PROT 5.9 g/dl (6.4-8.2)
[2020-09-23 07:51] LABS: COCAINE, UR NEGATIVE ng/ml (CUTOFF=300); METHADONE, UR NEGATIVE ng/ml (CUTOFF=300); URINE AMPHETAMINES NEGATIVE ng/ml (CUTOFF=500)
[2020-09-23 07:52] LABS: PHENCYCLIDINE,URINE NEGATIVE ng/ml (CUTOFF=25); URINE BENZODIAZEPINES NEGATIVE ng/ml (CUTOFF=200)
[2020-09-23] MEDS ORDERED: cloNIDine HCL 0.1 MG TABLET PO PRN (08:30)
[2020-09-23 08:33] LABS: PH,URINE 5.5 (5.0-8.0); URINE APPEARANCE CLEAR; URINE BILIRUBIN NEGATIVE (NEGATIVE); URINE COLOR YELLOW; URINE GLUCOSE (UA) NEGATIVE (NEGATIVE); URINE KETONE NEGATIVE (NEGATIVE); URINE LEUK ESTERASE NEGATIVE (NEGATIVE); URINE NITRITE NEGATIVE (NEGATIVE); URINE PROTEIN NEGATIVE (NEGATIVE); URINE UROBILINOGEN 0.2 mg/dL (0.2-1.0)
[2020-09-23 08:35] LABS: URINE BARBITURATES NEGATIVE ng/ml (CUTOFF=200)
[2020-09-23 08:39] LABS: OPIATES, URI POSITIVE ng/ml (CUTOFF=300)
[2020-09-23] MEDS ORDERED: ENOXAPARIN NA (PORCINE) 40 MG/0.4 ML DISP.SYRIN SQ SCH (10:00)
[2020-09-24] MEDS ORDERED: PIPERACILLIN/TAZOB 3.375 GM 3.375 GM in DEXTROSE 5%-WATER - 50 ML IVPB SCH (03:00)
[2020-09-24] MEDS ORDERED: VANCOMYCIN 1,000 MG in DEXTROSE 5%-WATER - 250 ML IVPB SCH (06:00)
[2020-09-24] MEDS ORDERED: METHADONE 20 MG, METHADONE 5 MG PO ONE (10:00)
[2020-09-25] MEDS ORDERED: METHADONE HCL 10 MG TABLET PO ONE (10:00)
[2020-09-26] MEDS ORDERED: METHADONE 10 MG, METHADONE 5 MG PO ONE (10:00)
[2020-09-27] MEDS ORDERED: METHADONE HCL 10 MG TABLET PO ONE (10:00)
[2020-09-28] MEDS ORDERED: METHADONE HCL 5 MG TABLET PO ONE (06:00)
== END 2020-09-23 08:45 | disposition left against medical advice (07) | DRG 344 ==
LOC: JER 18:11 → UNDOADMIN 20:21 → JERBED 20:21 → JLDR 20:21 → JERBED 09-23 02:37
PROVIDERS: ADMIT Hospitalist; ATTEND Student in an Organized Health Care Education/Training Program
PROC: HZ2ZZZZ Detoxification Services for Substance Abuse Treatment (ICD-10-PCS; principal; 2020-09-22)
DX: M86.9 Osteomyelitis, unspecified (principal); S91.301A Unspecified open wound, right foot, initial encounter; F11.23 Opioid dependence with withdrawal; B19.20 Unspecified viral hepatitis C without hepatic coma; F31.9 Bipolar disorder, unspecified; F13.10 Sedative, hypnotic or anxiolytic abuse, uncomplicated; F41.9 Anxiety disorder, unspecified; F17.210 Nicotine dependence, cigarettes, uncomplicated; F12.20 Cannabis dependence, uncomplicated; L03.115 Cellulitis of right lower limb; F14.20 Cocaine dependence, uncomplicated; X58.XXXA Exposure to other specified factors, initial encounter; Y93.9 Activity, unspecified; Y92.9 Unspecified place or not applicable; Y99.9 Unspecified external cause status
CPT/HCPCS: 36415; 73630-TC-RT-FY; 80053; 80307; 81003; 83735; 84100; 85025; 85027; 85651; 86140; 87040; 93005; 93010; 99285-25; C9803; U0003

== ENCOUNTER 2020-10-03 15:30 | Emergency (ER) | payer OTHER ==
[2020-10-03 15:38] VITALS: BP 119/78; PULSE 73; TEMP 97.8; BMI 23.1
== END 2020-10-03 17:55 | disposition home or self-care (01) ==
LOC: JER 15:30
DX: S91.301A Unspecified open wound, right foot, initial encounter (principal)
CPT/HCPCS: 99282-25

== ENCOUNTER 2021-08-29 11:56 | Inpatient (IN) | payer OTHER ==
[2021-08-29 14:21] VITALS: BMI 22.1
[2021-08-29] MEDS ORDERED: IBUPROFEN 400 MG TABLET (FP) PO PRN (14:37)
[2021-08-29] MEDS ORDERED: METHOCARBAMOL 500 MG TABLET PO PRN (14:37)
[2021-08-29] MEDS ORDERED: MAGNESIUM CITRATE 300 ML BOTTLE PO PRN (14:37)
[2021-08-29] MEDS ORDERED: methaDONE HCL 10 MG TABLET (FOR DETOX USE ONLY) PO ONE (14:37)
[2021-08-29] MEDS ORDERED: ACETAMINOPHEN 325 MG TABLET (FP) PO PRN ×2 (14:37)
[2021-08-29] MEDS ORDERED: MAG HYDROX/AL HYDROX/SIMETH 30 ML UNIT-DOSE CUP PO PRN (14:37)
[2021-08-29] MEDS ORDERED: MAGNESIUM HYDROX 2400MG/30ML ORAL SUSPENSION 30 ML CUP PO PRN (14:37)
[2021-08-29] MEDS ORDERED: MENTHOL/PHENOL 1 EACH UD MM PRN (14:37)
[2021-08-29] MEDS ORDERED: ONDANSETRON *ODT* 4 MG TABLET SL PRN (14:37)
[2021-08-29] MEDS ORDERED: NICOTINE 10 MG CARTRIDGE (INHALER) IH PRN (14:37)
[2021-08-29] MEDS ORDERED: methaDONE HCL 10 MG TABLET (FOR DETOX USE ONLY) ONE (15:10)
[2021-08-29] MEDS: BISMUTH SUBSALICYLATE 262 MG/15 ML BTL PO PRN ×2 (15:47→22:19)
[2021-08-29] MEDS: hydrOXYzine PAMOATE 25 MG CAPSULE (FP) PO SCH ×2 (18:55→22:19)
[2021-08-29] MEDS: THIAMINE HCL 100 MG TABLET (FP) PO SCH (22:19)
[2021-08-29] MEDS: MELATONIN 5 MG TABLETS PO SCH (22:20)
[2021-08-29] MEDS: cloNIDine HCL 0.1 MG TABLET PO PRN (22:21)
[2021-08-30] MEDS: hydrOXYzine PAMOATE 25 MG CAPSULE (FP) PO SCH ×5 (05:48→22:40)
[2021-08-30] MEDS ORDERED: methaDONE HCL 10 MG TABLET (FOR DETOX USE ONLY) ONE (08:51)
[2021-08-30] MEDS ORDERED: ALBUTEROL SO4 HFA INHALER IH PRN (09:13)
[2021-08-30] MEDS: PRENATAL VITAMINS W/ FOLIC ACID TABLET (FP) PO SCH (10:13)
[2021-08-30 10:58] LABS: HEMATOCRIT 45.1 % (35.4-49); HEMOGLOBIN 14.9 GM/dL (11.7-16.9); MCH 27.9 pg (25.7-33.7); MEAN CELL VOLUME 84.6 fl (80-96); MEAN PLT VOLUME 8.1 fl (7.5-11.1); PLATELET COUNT 306 10^3/uL (134-434); RBC 5.33 M/mm3 (4.00-5.60); RDW 13.3 % (11.9-15.9); WHITE BLOOD COUNT 2.9 K/mm3 (4.0-10.0)
[2021-08-30 11:00] LABS: ALBUMIN 3.6 g/dl (3.4-5.0); CALCIUM 9.4 mg/dL (8.5-10.1)
[2021-08-30 11:03] LABS: BLOOD UREA NITROGEN 16.7 mg/dL (7-18)
[2021-08-30 11:04] LABS: CREATININE 1.2 mg/dL (0.55-1.3)
[2021-08-30 11:05] LABS: BILIRUBIN,TOTAL 0.9 mg/dL (0.2-1); TOT PROT 7.8 g/dl (6.4-8.2)
[2021-08-30] MEDS ORDERED: FLU VACC QS2021-22(6MOS UP)/PF 60 MCG/0.5 ML SYRINGE IM ONE (12:00)
[2021-08-30] MEDS: ARIPiprazole 10 MG TABLET PO SCH (12:03)
[2021-08-30] MEDS ORDERED: diazePAM 5 MG TABLET PO PRN (13:38)
[2021-08-30] MEDS: MELATONIN 5 MG TABLETS PO SCH (22:40)
[2021-08-30] MEDS: THIAMINE HCL 100 MG TABLET (FP) PO SCH (22:40)
[2021-08-31] MEDS: hydrOXYzine PAMOATE 25 MG CAPSULE (FP) PO SCH ×2 (05:53→10:04)
[2021-08-31] MEDS: cloNIDine HCL 0.1 MG TABLET PO PRN (05:54)
[2021-08-31 09:15] VITALS: BP 106/63; PULSE 72; TEMP 97.8
[2021-08-31] MEDS: ARIPiprazole 10 MG TABLET PO SCH (10:00)
[2021-08-31] MEDS: PRENATAL VITAMINS W/ FOLIC ACID TABLET (FP) PO SCH (10:00)
[2021-08-31] MEDS ORDERED: methaDONE HCL 10 MG TABLET (FOR DETOX USE ONLY) PO ONE (10:00)
[2021-08-31 11:11] LABS: HEMATOCRIT 42.1 % (35.4-49); HEMOGLOBIN 13.8 GM/dL (11.7-16.9); MCH 27.5 pg (25.7-33.7); MCHC 32.7 g/dl (32.0-35.9); MEAN CELL VOLUME 84.1 fl (80-96); MEAN PLT VOLUME 8.1 fl (7.5-11.1); PLATELET COUNT 251 10^3/uL (134-434); RBC 5.01 M/mm3 (4.00-5.60); WHITE BLOOD COUNT 2.7 K/mm3 (4.0-10.0)
[2021-09-02] MEDS ORDERED: methaDONE HCL 10 MG TABLET (FOR DETOX USE ONLY) PO ONE (10:00)
== END 2021-08-31 10:05 | disposition left against medical advice (07) | DRG 770 ==
LOC: YASAS 11:56 → Y6N 15:07
PROVIDERS: ADMIT Allergy & Immunology; ATTEND Allergy & Immunology
PROC: HZ2ZZZZ Detoxification Services for Substance Abuse Treatment (ICD-10-PCS; principal; 2021-08-29)
DX: F11.23 Opioid dependence with withdrawal (principal); F14.20 Cocaine dependence, uncomplicated; F12.20 Cannabis dependence, uncomplicated; F17.213 Nicotine dependence, cigarettes, with withdrawal; F39 Unspecified mood [affective] disorder; F19.280 Other psychoactive substance dependence with psychoactive substance-induced anxiety disorder; F19.282 Other psychoactive substance dependence with psychoactive substance-induced sleep disorder; J45.20 Mild intermittent asthma, uncomplicated; R63.4 Abnormal weight loss; B18.2 Chronic viral hepatitis C; K21.9 Gastro-esophageal reflux disease without esophagitis; Z91.013 Allergy to seafood; Z56.0 Unemployment, unspecified; Z59.00 Homelessness unspecified
CPT/HCPCS: 36415; 80053; 85027; 86780; C9803; J0735; U0003; U0005

== ENCOUNTER 2022-02-14 09:21 | Inpatient (IN) | payer OTHER ==
[2022-02-14] MEDS ORDERED: cloNIDine HCL 0.1 MG TABLET PO PRN (11:16)
[2022-02-14] MEDS ORDERED: MAG HYDROX/AL HYDROX/SIMETH 30 ML UNIT-DOSE CUP PO PRN (11:16)
[2022-02-14] MEDS ORDERED: DICYCLOMINE HCL 10 MG CAPSULE PO PRN (11:16)
[2022-02-14] MEDS ORDERED: MAGNESIUM HYDROX 2400MG/30ML ORAL SUSPENSION 30 ML CUP PO PRN (11:16)
[2022-02-14] MEDS ORDERED: NICOTINE 10 MG CARTRIDGE (INHALER) IH PRN (11:16)
[2022-02-14] MEDS ORDERED: IBUPROFEN 400 MG TABLET (FP) PO PRN (11:16)
[2022-02-14] MEDS ORDERED: ACETAMINOPHEN 325 MG TABLET (FP) PO PRN ×2 (11:16)
[2022-02-14] MEDS ORDERED: MENTHOL/PHENOL 1 EACH UD MM PRN (11:16)
[2022-02-14] MEDS ORDERED: METHOCARBAMOL 500 MG TABLET PO PRN (11:16)
[2022-02-14] MEDS ORDERED: methaDONE HCL 10 MG TABLET (FOR DETOX USE ONLY) PO ONE (11:16)
[2022-02-14] MEDS ORDERED: ONDANSETRON *ODT* 4 MG TABLET SL PRN (11:16)
[2022-02-14] MEDS ORDERED: MAGNESIUM CITRATE 300 ML BOTTLE PO PRN (11:16)
[2022-02-14] MEDS ORDERED: LOPERAMIDE HCL 2 MG CAPSULE PO PRN (11:16)
[2022-02-14] MEDS ORDERED: BISMUTH SUBSALICYLATE 262 MG/15 ML BTL PO PRN (11:16)
[2022-02-14] MEDS ORDERED: LORazepam 1 MG TABLET PO PRN (11:16)
[2022-02-14] MEDS ORDERED: ALBUTEROL SO4 HFA INHALER IH PRN (11:21)
[2022-02-14 11:46] VITALS: BMI 22.5
[2022-02-14] MEDS: NICOTINE 14 MG/24 HOURS TOPICAL PATCH TD SCH (13:42)
[2022-02-14] MEDS: PRENATAL VITAMINS W/ FOLIC ACID TABLET (FP) PO SCH (13:42)
[2022-02-14] MEDS: hydrOXYzine PAMOATE 25 MG CAPSULE (FP) PO SCH ×3 (13:42→23:21)
[2022-02-14] MEDS: LORazepam 2 MG TABLET PO SCH ×2 (17:45→23:21)
[2022-02-14] MEDS: MELATONIN 5 MG TABLETS PO SCH (23:20)
[2022-02-14] MEDS: THIAMINE HCL 100 MG TABLET (FP) PO SCH (23:21)
[2022-02-15] MEDS: hydrOXYzine PAMOATE 25 MG CAPSULE (FP) PO SCH ×6 (05:43→22:57)
[2022-02-15] MEDS: LORazepam 2 MG TABLET PO SCH ×4 (05:43→22:55)
[2022-02-15] MEDS ORDERED: methaDONE HCL 10 MG TABLET (FOR DETOX USE ONLY) ONE (09:28)
[2022-02-15] MEDS: PRENATAL VITAMINS W/ FOLIC ACID TABLET (FP) PO SCH (10:18)
[2022-02-15] MEDS: NICOTINE 14 MG/24 HOURS TOPICAL PATCH TD SCH (10:20)
[2022-02-15] MEDS: ARIPiprazole 10 MG TABLET PO SCH (10:20)
[2022-02-15 12:16] LABS: HEMATOCRIT 38.1 % (35.4-49); HEMOGLOBIN 12.3 GM/dL (11.7-16.9); MCHC 32.3 g/dl (32.0-35.9); MEAN CELL VOLUME 83.7 fl (80-96); MEAN PLT VOLUME 7.5 fl (7.5-11.1); PLATELET COUNT 281 10^3/uL (134-434); RBC 4.55 M/mm3 (4.00-5.60)
[2022-02-15 12:19] LABS: CALCIUM 8.4 mg/dL (8.5-10.1)
[2022-02-15 12:24] LABS: BLOOD UREA NITROGEN 13.8 mg/dL (7-18); CREATININE 0.7 mg/dL (0.55-1.3)
[2022-02-15 12:25] LABS: ALBUMIN 2.9 g/dl (3.4-5.0); BILIRUBIN,TOTAL 0.2 mg/dL (0.2-1)
[2022-02-15 12:26] LABS: TOT PROT 5.9 g/dl (6.4-8.2)
[2022-02-15] MEDS: THIAMINE HCL 100 MG TABLET (FP) PO SCH (22:55)
[2022-02-15] MEDS: MELATONIN 5 MG TABLETS PO SCH (22:56)
[2022-02-16] MEDS: LORazepam 1 MG TABLET PO SCH ×2 (05:31→10:20)
[2022-02-16] MEDS: hydrOXYzine PAMOATE 25 MG CAPSULE (FP) PO SCH ×2 (05:31→10:20)
[2022-02-16 09:21] VITALS: BP 114/61; PULSE 74; TEMP 97.8
[2022-02-16] MEDS ORDERED: methaDONE HCL 10 MG TABLET (FOR DETOX USE ONLY) PO ONE (10:00)
[2022-02-16] MEDS: ARIPiprazole 10 MG TABLET PO SCH (10:20)
[2022-02-16] MEDS: PRENATAL VITAMINS W/ FOLIC ACID TABLET (FP) PO SCH (10:20)
[2022-02-16] MEDS: NICOTINE 14 MG/24 HOURS TOPICAL PATCH TD SCH (10:23)
[2022-02-16 22:06] LABS: SARS-CoV-2 NAA Not Detected (Not Detected)
[2022-02-17] MEDS ORDERED: LORazepam 0.5 MG TABLET PO PRN
[2022-02-17] MEDS ORDERED: LORazepam 0.5 MG TABLET PO SCH (05:00)
[2022-02-18] MEDS ORDERED: LORazepam 0.5 MG TABLET PO ONE (05:00)
[2022-02-18] MEDS ORDERED: methaDONE HCL 10 MG TABLET (FOR DETOX USE ONLY) PO ONE (10:00)
== END 2022-02-16 13:10 | disposition home or self-care (01) | DRG 773 ==
LOC: YASAS 09:21 → Y6N 13:08
PROVIDERS: ADMIT Allergy & Immunology; ATTEND Allergy & Immunology
PROC: HZ2ZZZZ Detoxification Services for Substance Abuse Treatment (ICD-10-PCS; principal; 2022-02-14)
DX: F11.23 Opioid dependence with withdrawal (principal); F10.230 Alcohol dependence with withdrawal, uncomplicated; F13.20 Sedative, hypnotic or anxiolytic dependence, uncomplicated; F14.20 Cocaine dependence, uncomplicated; F12.20 Cannabis dependence, uncomplicated; F17.210 Nicotine dependence, cigarettes, uncomplicated; F19.280 Other psychoactive substance dependence with psychoactive substance-induced anxiety disorder; F19.282 Other psychoactive substance dependence with psychoactive substance-induced sleep disorder; F39 Unspecified mood [affective] disorder; J45.20 Mild intermittent asthma, uncomplicated; B18.2 Chronic viral hepatitis C; Z91.013 Allergy to seafood; Z56.0 Unemployment, unspecified; Z59.00 Homelessness unspecified
CPT/HCPCS: 36415; 80053; 85027; 86780; 87811; C9803-CS; U0003; U0005

== ENCOUNTER 2022-07-17 13:15 | Inpatient (IN) | payer OTHER ==
[2022-07-17 15:22] VITALS: BMI 21.2
[2022-07-17] MEDS ORDERED: METHOCARBAMOL 500 MG TABLET PO PRN (15:43)
[2022-07-17] MEDS ORDERED: MAG HYDROX/AL HYDROX/SIMETH 30 ML UNIT-DOSE CUP PO PRN (15:43)
[2022-07-17] MEDS ORDERED: ONDANSETRON *ODT* 4 MG TABLET SL PRN (15:43)
[2022-07-17] MEDS ORDERED: IBUPROFEN 600 MG TABLET (FP) PO PRN (15:43)
[2022-07-17] MEDS ORDERED: BISMUTH SUBSALICYLATE 524 MG/30 ML PO PRN (15:43)
[2022-07-17] MEDS ORDERED: DICYCLOMINE HCL 10 MG CAPSULE PO PRN (15:43)
[2022-07-17] MEDS ORDERED: IBUPROFEN 400 MG TABLET (FP) PO PRN (15:43)
[2022-07-17] MEDS ORDERED: NICOTINE 10 MG CARTRIDGE (INHALER) IH PRN (15:43)
[2022-07-17] MEDS ORDERED: NALOXONE HCL (KLOXXADO) 8 MG SPRAY NS PRN (15:43)
[2022-07-17] MEDS ORDERED: MAGNESIUM CITRATE 300 ML BOTTLE PO PRN (15:43)
[2022-07-17] MEDS ORDERED: LOPERAMIDE HCL 2 MG CAPSULE PO PRN (15:43)
[2022-07-17] MEDS ORDERED: MAGNESIUM HYDROX 2400MG/30ML ORAL SUSPENSION 30 ML CUP PO PRN (15:43)
[2022-07-17] MEDS ORDERED: cloNIDine HCL 0.1 MG TABLET PO PRN (15:43)
[2022-07-17] MEDS ORDERED: ACETAMINOPHEN 325 MG TABLET (FP) PO PRN ×2 (15:43)
[2022-07-17] MEDS ORDERED: BENZOCAINE/MENTHOL (CHLORASEPTIC ) LOZENGE MM PRN (15:43)
[2022-07-17] MEDS ORDERED: ALBUTEROL SO4 HFA INHALER IH PRN (17:18)
[2022-07-17] MEDS ORDERED: methaDONE HCL 10 MG TABLET (FOR DETOX USE ONLY) PO ONE (17:30)
[2022-07-17] MEDS: PRENATAL VITAMINS W/ FOLIC ACID TABLET (FP) PO SCH (17:36)
[2022-07-17] MEDS: NICOTINE 14 MG/24 HOURS TOPICAL PATCH TD SCH (17:49)
[2022-07-17] MEDS: hydrOXYzine PAMOATE 25 MG CAPSULE (FP) PO SCH ×2 (17:49→23:33)
[2022-07-17] MEDS: THIAMINE HCL 100 MG TABLET (FP) PO SCH (23:33)
[2022-07-17] MEDS: MELATONIN 5 MG TABLETS PO SCH (23:33)
[2022-07-18] MEDS: hydrOXYzine PAMOATE 25 MG CAPSULE (FP) PO SCH ×5 (05:10→22:16)
[2022-07-18] MEDS: PRENATAL VITAMINS W/ FOLIC ACID TABLET (FP) PO SCH (10:15)
[2022-07-18] MEDS: clonazePAM 0.5 MG ODT TABLETS SL PRN (10:16)
[2022-07-18] MEDS: NICOTINE 14 MG/24 HOURS TOPICAL PATCH TD SCH (10:19)
[2022-07-18 14:04] LABS: HEMATOCRIT 35.6 % (35.4-49); HEMOGLOBIN 11.1 GM/dL (11.7-16.9); MCH 25.6 pg (25.7-33.7); MCHC 31.2 g/dl (32.0-35.9); MEAN CELL VOLUME 82.1 fl (80-96); MEAN PLT VOLUME 7.5 fl (7.5-11.1); PLATELET COUNT 266 10^3/uL (134-434); RBC 4.33 M/mm3 (4.00-5.60); RDW 15.4 % (11.9-15.9); WHITE BLOOD COUNT 4.1 K/mm3 (4.0-10.0)
[2022-07-18 14:07] LABS: CALCIUM 8.1 mg/dL (8.5-10.1)
[2022-07-18 14:08] LABS: ALBUMIN 2.7 g/dl (3.4-5.0); BLOOD UREA NITROGEN 12.2 mg/dL (7-18)
[2022-07-18 14:15] LABS: CREATININE 0.6 mg/dL (0.55-1.3)
[2022-07-18 14:16] LABS: BILIRUBIN,TOTAL 0.6 mg/dL (0.2-1); TOT PROT 6.5 g/dl (6.4-8.2)
[2022-07-18 15:05] LABS: HIV INTERPRETATION NEGATIVE (NEGATIVE)
[2022-07-18 17:38] VITALS: RESP 18; TEMP 97.3
[2022-07-18] MEDS: THIAMINE HCL 100 MG TABLET (FP) PO SCH (22:14)
[2022-07-18] MEDS: MELATONIN 5 MG TABLETS PO SCH (22:15)
[2022-07-19] MEDS: hydrOXYzine PAMOATE 25 MG CAPSULE (FP) PO SCH ×2 (05:02→11:07)
[2022-07-19] MEDS: clonazePAM 0.5 MG ODT TABLETS SL PRN (08:29)
[2022-07-19 09:08] VITALS: BP 167/96; PULSE 73
[2022-07-19] MEDS ORDERED: methaDONE HCL 10 MG TABLET (FOR DETOX USE ONLY) PO ONE (10:00)
[2022-07-19] MEDS: PRENATAL VITAMINS W/ FOLIC ACID TABLET (FP) PO SCH (10:32)
[2022-07-19] MEDS: NICOTINE 14 MG/24 HOURS TOPICAL PATCH TD SCH (10:34)
[2022-07-21] MEDS ORDERED: methaDONE HCL 10 MG TABLET (FOR DETOX USE ONLY) PO ONE (10:00)
== END 2022-07-19 13:13 | disposition left against medical advice (07) | DRG 770 ==
LOC: YASAS 13:15 → Y6N 15:50
PROVIDERS: ADMIT Allergy & Immunology; ATTEND Surgery
PROC: HZ2ZZZZ Detoxification Services for Substance Abuse Treatment (ICD-10-PCS; principal; 2022-07-17)
DX: F11.23 Opioid dependence with withdrawal (principal); F14.20 Cocaine dependence, uncomplicated; F13.10 Sedative, hypnotic or anxiolytic abuse, uncomplicated; F12.20 Cannabis dependence, uncomplicated; F17.210 Nicotine dependence, cigarettes, uncomplicated; F19.280 Other psychoactive substance dependence with psychoactive substance-induced anxiety disorder; F39 Unspecified mood [affective] disorder; J45.909 Unspecified asthma, uncomplicated; M54.50 Low back pain, unspecified; Z86.19 Personal history of other infectious and parasitic diseases; Z59.00 Homelessness unspecified
CPT/HCPCS: 36415; 80053; 85027; 86780; 87389; C9803-CS; Q0162; U0003; U0005

== ENCOUNTER 2023-12-16 16:56 | Inpatient (IN) | payer OTHER ==
[2023-12-16 18:42] VITALS: BMI 22.4
[2023-12-16] MEDS ORDERED: guaiFENesin 600 MG TABLET.ER (FP) PO PRN (21:12)
[2023-12-16] MEDS ORDERED: hydrOXYzine PAMOATE 25 MG CAPSULE (FP) PO PRN (21:12)
[2023-12-16] MEDS ORDERED: MAG HYDROX/AL HYDROX/SIMETH 30 ML UNIT-DOSE CUP PO PRN (21:12)
[2023-12-16] MEDS ORDERED: NALOXONE HCL (KLOXXADO) 8 MG SPRAY NS PRN (21:12)
[2023-12-16] MEDS ORDERED: ONDANSETRON *ODT* 4 MG TABLET SL PRN (21:12)
[2023-12-16] MEDS ORDERED: BISMUTH SUBSALICYLATE 524 MG/30 ML PO PRN (21:12)
[2023-12-16] MEDS ORDERED: DICYCLOMINE HCL 10 MG CAPSULE PO PRN (21:12)
[2023-12-16] MEDS ORDERED: P-EPHED 60MG/TRIPROLIDI 2.5MG TABLET PO PRN (21:12)
[2023-12-16] MEDS ORDERED: POLYETHYLENE GLYCOL (HEALTHYLAX) 3350 17 GM PACKET PO PRN (21:12)
[2023-12-16] MEDS ORDERED: NALOXONE HCL 0.4 MG/ML VIAL IM PRN (21:12)
[2023-12-16] MEDS ORDERED: MAGNESIUM HYDROX 2400MG/30ML ORAL SUSPENSION 30 ML CUP PO PRN (21:12)
[2023-12-16] MEDS ORDERED: BENZOCAINE/MENTHOL (CHLORASEPTIC ) LOZENGE MM PRN (21:12)
[2023-12-16] MEDS ORDERED: LOPERAMIDE HCL 2 MG CAPSULE PO PRN (21:12)
[2023-12-16] MEDS ORDERED: BENZONATATE 200 MG CAPSULE PO PRN (21:12)
[2023-12-16] MEDS: IBUPROFEN 600 MG TABLET (FP) PO PRN (21:59)
[2023-12-16] MEDS: MELATONIN 5 MG TABLETS PO SCH (21:59)
[2023-12-16] MEDS: METHOCARBAMOL 500 MG TABLET PO PRN (22:00)
[2023-12-16] MEDS: THIAMINE HCL 100 MG TABLET (FP) PO SCH (22:00)
[2023-12-17] MEDS: PRENATAL VITAMINS W/ FOLIC ACID TABLET (FP) PO SCH (09:40)
[2023-12-17] MEDS ORDERED: cloNIDine HCL 0.1 MG TABLET PO PRN (10:15)
[2023-12-17] MEDS: methaDONE HCL 10 MG TABLET (FOR DETOX USE ONLY) PO ONE (10:29)
[2023-12-17] MEDS: diazePAM 5 MG TABLET PO PRN (10:29)
[2023-12-17 11:56] LABS: HEMOGLOBIN 10.8 GM/dL (11.7-16.9); MCH 26.8 pg (25.7-33.7); MCHC 32.7 g/dl (32.0-35.9); MEAN PLT VOLUME 7.1 fl (7.5-11.1); PLATELET COUNT 291 10^3/uL (134-434); RBC 4.02 M/mm3 (4.00-5.60); WHITE BLOOD COUNT 5.3 K/mm3 (4.0-10.0)
[2023-12-17 12:34] LABS: POTASSIUM 4.1 mmol/L (3.5-5.1)
[2023-12-17 12:40] LABS: CALCIUM 7.9 mg/dL (8.5-10.1)
[2023-12-17 12:41] LABS: ALBUMIN 2.6 g/dl (3.4-5.0); BLOOD UREA NITROGEN 11.5 mg/dL (7-18)
[2023-12-17 12:44] LABS: BILIRUBIN,TOTAL 0.2 mg/dL (0.2-1); CREATININE 0.8 mg/dL (0.55-1.3)
[2023-12-17] MEDS: traZODone HCL 50 MG TABLET (FP) PO SCH (22:51)
[2023-12-18] MEDS: CEPHALEXIN MONOHYDRATE 500 MG CAPSULE (UD) PO SCH (17:17)
[2023-12-19] MEDS: IBUPROFEN 400 MG TABLET (FP) PO PRN (05:57)
[2023-12-19] MEDS: methaDONE HCL 10 MG TABLET (FOR DETOX USE ONLY) PO ONE (10:04)
[2023-12-19] MEDS: ACETAMINOPHEN 325 MG TABLET (FP) PO PRN (10:07)
[2023-12-21] MEDS: methaDONE HCL 10 MG TABLET (FOR DETOX USE ONLY) PO ONE (10:08)
[2023-12-21 20:46] VITALS: PULSE 62
[2023-12-22 06:25] VITALS: BP 107/69; RESP 18; TEMP 98.4
== END 2023-12-22 09:05 | disposition home or self-care (01) | DRG 773 ==
LOC: YASAS 16:56 → Y3N 21:40
PROVIDERS: ADMIT Allergy & Immunology; ATTEND Allergy & Immunology
PROC: HZ2ZZZZ Detoxification Services for Substance Abuse Treatment (ICD-10-PCS; principal; 2023-12-16)
DX: F11.23 Opioid dependence with withdrawal (principal); F14.20 Cocaine dependence, uncomplicated; F16.20 Hallucinogen dependence, uncomplicated; F12.20 Cannabis dependence, uncomplicated; J45.909 Unspecified asthma, uncomplicated; B18.2 Chronic viral hepatitis C; T81.49XA Infection following a procedure, other surgical site, initial encounter; B95.7 Other staphylococcus as the cause of diseases classified elsewhere; B95.0 Streptococcus, group A, as the cause of diseases classified elsewhere; Z87.891 Personal history of nicotine dependence; Z59.00 Homelessness unspecified
CPT/HCPCS: 0241U-QW; 36415; 80053; 85027; 86780; 87070; 87077; 87205; 87635; 93005; 93010

== ENCOUNTER 2024-03-05 13:45 | Inpatient (IN) | payer OTHER ==
[2024-03-05 14:49] VITALS: BMI 22.8
[2024-03-05] MEDS ORDERED: IBUPROFEN 600 MG TABLET (FP) PO PRN (16:02)
[2024-03-05] MEDS ORDERED: guaiFENesin 600 MG TABLET.ER (FP) PO PRN (16:02)
[2024-03-05] MEDS ORDERED: IBUPROFEN 400 MG TABLET (FP) PO PRN (16:02)
[2024-03-05] MEDS ORDERED: LOPERAMIDE HCL 2 MG CAPSULE PO PRN (16:02)
[2024-03-05] MEDS ORDERED: MAGNESIUM HYDROX 2400MG/30ML ORAL SUSPENSION 30 ML CUP PO PRN (16:02)
[2024-03-05] MEDS ORDERED: METHOCARBAMOL 500 MG TABLET PO PRN (16:02)
[2024-03-05] MEDS ORDERED: BENZONATATE 200 MG CAPSULE PO PRN (16:02)
[2024-03-05] MEDS ORDERED: BENZOCAINE/MENTHOL (CHLORASEPTIC ) LOZENGE MM PRN (16:02)
[2024-03-05] MEDS ORDERED: BISMUTH SUBSALICYLATE 524 MG/30 ML PO PRN (16:02)
[2024-03-05] MEDS ORDERED: MAG HYDROX/AL HYDROX/SIMETH 30 ML UNIT-DOSE CUP PO PRN (16:02)
[2024-03-05] MEDS ORDERED: POLYETHYLENE GLYCOL (HEALTHYLAX) 3350 17 GM PACKET PO PRN (16:02)
[2024-03-05] MEDS ORDERED: NALOXONE HCL 0.4 MG/ML VIAL IM PRN (16:02)
[2024-03-05] MEDS ORDERED: NALOXONE HCL (KLOXXADO) 8 MG SPRAY NS PRN (16:02)
[2024-03-05] MEDS ORDERED: ACETAMINOPHEN 325 MG TABLET (FP) PO PRN (16:02)
[2024-03-05] MEDS ORDERED: ONDANSETRON *ODT* 4 MG TABLET SL PRN (16:02)
[2024-03-05] MEDS ORDERED: DICYCLOMINE HCL 10 MG CAPSULE PO PRN (16:02)
[2024-03-05] MEDS ORDERED: ALBUTEROL SO4 HFA INHALER IH PRN (16:09)
[2024-03-05] MEDS ORDERED: methaDONE HCL 10 MG TABLET (FOR DETOX USE ONLY) ONE (17:22)
[2024-03-05] MEDS: methaDONE HCL 10 MG TABLET PO ONE (17:25)
[2024-03-05] MEDS: cloNIDine HCL 0.1 MG TABLET PO SCH (17:43)
[2024-03-05] MEDS ORDERED: methaDONE HCL 10 MG TABLET PO PRN (18:02)
[2024-03-05] MEDS: traZODone HCL 50 MG TABLET (FP) PO SCH (23:05)
[2024-03-05] MEDS: MELATONIN 5 MG TABLETS PO SCH (23:05)
[2024-03-05] MEDS: THIAMINE 100 MG TABLET PO SCH (23:05)
[2024-03-06] MEDS: methaDONE 40 MG, methaDONE 10 MG PO ONE (05:50)
[2024-03-06] MEDS: hydrOXYzine PAMOATE 25 MG CAPSULE (FP) PO PRN (09:42)
[2024-03-06] MEDS: PRENATAL VITAMINS W/ FOLIC ACID TABLET (FP) PO SCH (09:42)
[2024-03-06] MEDS: NICOTINE 14 MG/24 HOURS TOPICAL PATCH TD SCH (09:42)
[2024-03-06 11:42] LABS: HEMOGLOBIN 11.2 GM/dL (11.7-16.9); MCH 25.1 pg (25.7-33.7); MEAN CELL VOLUME 80.8 fl (80-96); MEAN PLT VOLUME 7.5 fl (7.5-11.1); PLATELET COUNT 255 10^3/uL (134-434); RBC 4.45 M/mm3 (4.00-5.60); RDW 15.3 % (11.9-15.9); WHITE BLOOD COUNT 4.3 K/mm3 (4.0-10.0)
[2024-03-06 11:56] LABS: POTASSIUM 4.3 mmol/L (3.5-5.1)
[2024-03-06 12:21] LABS: CALCIUM 8.1 mg/dL (8.5-10.1)
[2024-03-06 12:22] LABS: ALBUMIN 2.6 g/dl (3.4-5.0); BLOOD UREA NITROGEN 15.4 mg/dL (7-18)
[2024-03-06 12:24] LABS: CREATININE 0.8 mg/dL (0.55-1.3)
[2024-03-06 12:26] LABS: BILIRUBIN,TOTAL 0.4 mg/dL (0.2-1)
[2024-03-07] MEDS ORDERED: cloNIDine HCL 0.1 MG TABLET PO PRN
[2024-03-07] MEDS: methaDONE 40 MG, methaDONE 20 MG PO ONE (06:36)
[2024-03-08] MEDS: methaDONE 40 MG, methaDONE 30 MG PO ONE (05:40)
[2024-03-08 06:28] VITALS: BP 132/90; PULSE 71; RESP 18; TEMP 97.7
[2024-03-09] MEDS ORDERED: methaDONE HCL 40 MG DISPERSABLE TABLET PO ONE (06:00)
[2024-03-10] MEDS ORDERED: methaDONE 80 MG, methaDONE 10 MG PO ONE (06:00)
== END 2024-03-08 07:15 | disposition left against medical advice (07) | DRG 770 ==
LOC: YASAS 13:45 → Y3N 16:39
PROVIDERS: ADMIT Allergy & Immunology; ATTEND Surgery
PROC: HZ2ZZZZ Detoxification Services for Substance Abuse Treatment (ICD-10-PCS; principal; 2024-03-05)
DX: F11.23 Opioid dependence with withdrawal (principal); F14.20 Cocaine dependence, uncomplicated; F13.20 Sedative, hypnotic or anxiolytic dependence, uncomplicated; F12.20 Cannabis dependence, uncomplicated; F17.210 Nicotine dependence, cigarettes, uncomplicated; F31.9 Bipolar disorder, unspecified; F41.9 Anxiety disorder, unspecified; J45.909 Unspecified asthma, uncomplicated; B18.2 Chronic viral hepatitis C; Z59.02 Unsheltered homelessness
CPT/HCPCS: 36415; 80053; 85027; 86780; 93005; 93010